=== PATIENT | female | born 1930 | race Caucasian/White ===

== ENCOUNTER → 2016-11-25 | Outpatient (CLI) | payer MEDICARE, BC, OTHER ==
[2016-11-25 12:49] LABS: ALT 21 U/L (9-52); AST 31 U/L (14-36); Alkaline Phosphatase 84 U/L (38-126); Anion Gap 9 mmol/L; Blood Urea Nitrogen 18 mg/dL (7-17); Calcium 10.7 mg/dL (8.4-10.2); Carbon Dioxide 25 mmol/L (22-30); Chloride 107 mmol/L (98-107); Glucose 107 mg/dL (74-99); Non-African American GFR(MDRD) 49 (>60 ml/min/1.73 sqM); Potassium 5.7 mmol/L (3.5-5.1); Sodium 141 mmol/L (137-145); Total Bilirubin 0.8 mg/dL (0.2-1.3); Total Protein 7.4 g/dL (6.3-8.2)
== END | disposition home or self-care (01) ==
LOC: LABWHC1 12:08
PROVIDERS: ATTEND Internal Medicine Endocrinology, Diabetes & Metabolism
DX: E21.0 Primary hyperparathyroidism (principal); E03.8 Other specified hypothyroidism
CPT/HCPCS: 36415; 80053; 83970; 84443

== ENCOUNTER → 2016-12-15 | Outpatient (CLI) | payer MEDICARE, BC, OTHER ==
--- NOTE | 2016-12-15 14:41 | XR ---
EXAMINATION TYPE: XR Hip Complete LT DATE OF EXAM: 12/15/2016 2:15 PM CLINICAL HISTORY: pain TECHNIQUE: AP and frogleg views of the left hip are obtained. COMPARISON: None. FINDINGS: There is no acute fracture/dislocation evident. The joint space appears mildly to modera tely narrowed.. The overlying soft tissue appears unremarkable. IMPRESSION: 1. There is no acute fracture or dislocation.ICD 10 NO FRACTURE, INITIAL EVALUATION
--- NOTE | 2016-12-15 14:41 | XR ---
EXAMINATION TYPE: XR lumbosacral spine min 4V DATE OF EXAM: 12/15/2016 2:15 PM CLINICAL HISTORY: pain COMPARISON: 08/21/2010 TECHNIQUE: Frontal, lateral, and oblique images of the lumbar spine are obtained. FINDINGS: There is severe multilevel degenerative disc disease with multilevel vacuum disc. Endplate sclerosis and ventral spondylosis as well as severe facet joint arthropathy. Continued grade 1 estefani listhesis L4 and L5 measuring 8 mm. No evidence for compression fracture or bony lesion. IMPRESSION: Progressive degenerative changes of the lumbar spine.
== END | disposition home or self-care (01) ==
LOC: RADXRMAIN 13:34
PROVIDERS: ATTEND Internal Medicine
DX: M47.816 Spondylosis without myelopathy or radiculopathy, lumbar region (principal); T14.90 Injury, unspecified
CPT/HCPCS: 72110; 73502

== ENCOUNTER 2016-12-20 14:18 | Emergency (ER) | payer MEDICARE, OTHER ==
[2016-12-20 14:29] VITALS: RESP 18; TEMP 98.5
--- NOTE | 2016-12-20 14:57 | XR ---
EXAMINATION TYPE: XR Hip RT and AP Pelvis DATE OF EXAM ORDERED: 12/20/2016 2:51 PM HISTORY: Pain. COMPARISON: None. FINDINGS: There are degenerative changes present in the lower lumbar spine. There is mild degenerati ve change of both hips, greater on the left than the right. Osseous structures about the pelvis are normal. No fracture or dislocation is seen. IMPRESSION: 1. NO ACUTE OSSEOUS LESION. 2. MILD DEGENERATIVE CHANGE IN THE HIPS AND SPINE.
--- NOTE | 2016-12-20 15:51 | ED ---
General Adult HPI - General Chief complaint: Extremity Injury, Lower Stated complaint: Fall Time Seen by Provider: 12/20/16 14:34 Source: patient, EMS, RN notes reviewed Mode of arrival: EMS Limitations: no limitations - History of Present Illness Initial comments: This is an 86-year-old female who presents for a hip pain via EMS. Patient states she was reaching for something and fell onto the right hip. Patient states this happened this morning and she is noticing increased pain so she came in for an x-ray. Patient denies hitting her head or any loss of consciousness. Patient is not on any blood thinners. Patient states she has been ambulating. Patient denies any knee pain or ankle pain. Patient denies any change in bowel or bladder function or loss of sensation to the saddle area. Patient denies any numbness/tingling/weakness or radicular pain. Patient denies any dizziness. Patient denies any recent fever, chills, shortness breath , chest pain, abdominal pain, nausea/vomiting/diarrhea, back pain, hematuria, headache, or visual changes, or any other complaints. - Related Data Home Medications Medication Instructions Recorded Confirmed LORazepam [Ativan] 0.5 mg PO DAILY 02/07/14 11/07/15 Levothyroxine Sodium [Synthroid] 150 mcg PO DAILY 02/07/14 11/07/15 Esomeprazole Magnesium [NexIUM] 40 mg PO DAILY 07/27/14 11/07/15 Sertraline [Zoloft] 100 mg PO DAILY 07/27/14 11/07/15 Simvastatin [Zocor] 20 mg PO HS 02/27/15 11/07/15 Albuterol Inhaler [Ventolin Hfa 1 - 2 puff INHALATION RT-Q6H PRN 11/06/15 Inhaler] LORazepam [Ativan] 1.5 mg PO HS 11/07/15 11/07/15 Previous Rx's Medication Instructions Recorded Bisoprolol [Zebeta] 5 mg PO BID #0 11/07/15 Enalapril [Vasotec] 5 mg PO DAILY #30 tab 11/07/15 Allergies Allergy/AdvReac Type Severity Reaction Status Date / Time codeine Allergy Unknown Verified 11/21/14 13:38 iodine Allergy Rash/Hives Verified 11/21/14 13:38 Calcium Channel Blocking AdvReac Unknown Verified 11/21/14 13:38 Agent Dilt [Calcium Channel Blocking Agents-Kevin] Review of Systems ROS Statement: Those systems with pertinent positive or pertinent negative responses have been documented in the HPI. ROS Other: All systems not noted in ROS Statement are negative. Past Medical History Past Medical History: COPD, Hypertension Additional Past Medical History / Comment(s): rheumatoid arthritis, hiatal hernia, parathyroid tumor, thoracic aneurysm, uti, History of Any Multi-Drug Resistant Organisms: None Reported Past Surgical History: Cholecystectomy, Hysterectomy Additional Past Surgical History / Comment(s): cataracts, Past Anesthesia/Blood Transfusion Reactions: No Reported Reaction Past Psychological History: Anxiety, Depression Smoking Status: Never smoker Past Alcohol Use History: None Reported Past Drug Use History: None Reported General Exam - General Exam Comments Initial Comments: General: The patient is awake and alert, in no distress, and does not appear acutely ill. Neck: The neck is supple, there is no tenderness or JVD. Cardiovascular: There is a regular rate and rhythm. No murmur, rub or gallop is appreciated. Respiratory: Lungs are clear to auscultation, respirations are non-labored, breath sounds are equal. No wheezes, stridor, rales, or rhonchi. Musculoskeletal: There is no apparent tenderness to palpation to the right hip or right knee. There is no swelling, erythema or ecchymosis. Patient has full range of motion, patient is ambulatory in the EC without any difficulty. Strength is 5/5 and Sensation intact. Posterior tibial pulses 2+ bilaterally. Neurological: A&O x 3. CN II-XII intact, There are no obvious motor or sensory deficits. Coordination appears grossly intact. Speech is normal. Skin: Skin is warm and dry and no rashes or lesions are noted. Psychiatric: Normal mood and affect. Limitations: no limitations Course Vital Signs 12/20/16 12/20/16 14:26 15:56 Temperature 98.5 F Pulse Rate 76 79 Respiratory 18 18 Rate Blood Pressure 152/79 140/71 O2 Sat by Pulse 96 96 Oximetry Medical Decision Making - Medical Decision Making This is an 86-year-old female who presents with right hip pain. Patient states she was reaching for something and fell onto the right hip. Patient has been ambulating without any pain or difficulty ever since. I observed patient walked bathroom and back in the EC without any difficulty using her walker. There is no apparent tenderness, bruising, swelling or erythema of the right hip. An x-ray of the right hip was done and reviewed showing: #1 no acute osseous lesion. #2 mild degenerative change in the hips and spine. Report by Dr. Manzo. Patient's granddaughter was also present in the room. Patient was offered an x-ray of the right knee but patient refused stating her knee pain is chronic for her and this is not worse today. Patient states she is not in a lot of pain and is ready to go home. Granddaughter states she will be with her for the rest of the day. I discussed return parameters and occult fracture. Discussed that patient should follow up with PCP in one to 2 days or return to the EC for any worsening symptoms or for any further concerns. Patient and granddaughter were receptive to this plan and patient will be discharged home. Disposition Clinical Impression: Right hip pain Disposition: HOME SELF-CARE Condition: Good Instructions: Hip Pain (ED) Additional Instructions: Please rest ice the area. Please use your normal at home pain medications. If symptoms do not improve in the next 7 days repeat x-rays may be needed to rule out occult fracture. Please follow-up with her primary care physician tomorrow or return to the EC for any worsening symptoms or for any further concerns. Referrals: Howie Negrete MD [Primary Care Provider] - 1-2 days Time of Disposition: 15:51
[2016-12-20 15:57] VITALS: BP 140/71; PULSE 79
== END 2016-12-20 15:57 | disposition home or self-care (01) ==
LOC: EC 14:18
DX: M25.551 Pain in right hip (principal); I10 Essential (primary) hypertension; F41.9 Anxiety disorder, unspecified; F32.9 Major depressive disorder, single episode, unspecified; Z88.5 Allergy status to narcotic agent; Z91.048 Other nonmedicinal substance allergy status; Z79.899 Other long term (current) drug therapy; W19.XXXA Unspecified fall, initial encounter
CPT/HCPCS: 73502; 99283

== ENCOUNTER → 2017-01-05 | Outpatient (CLI) | payer MEDICARE, OTHER ==
[2017-01-05 12:03] LABS: ALT 21 U/L (9-52); AST 27 U/L (14-36); Alkaline Phosphatase 190 U/L (38-126); Anion Gap 9 mmol/L; Blood Urea Nitrogen 20 mg/dL (7-17); Calcium 10.6 mg/dL (8.4-10.2); Carbon Dioxide 23 mmol/L (22-30); Chloride 107 mmol/L (98-107); Glucose 120 mg/dL (74-99); Non-African American GFR(MDRD) 57 (>60 ml/min/1.73 sqM); Sodium 139 mmol/L (137-145); Total Bilirubin 0.8 mg/dL (0.2-1.3); Total Protein 7.5 g/dL (6.3-8.2)
== END | disposition home or self-care (01) ==
LOC: LABWHC1 11:17
PROVIDERS: ATTEND Internal Medicine Endocrinology, Diabetes & Metabolism
DX: E21.0 Primary hyperparathyroidism (principal); E03.8 Other specified hypothyroidism
CPT/HCPCS: 36415; 80053; 82306; 83970; 84439; 84443

== ENCOUNTER 2017-01-10 04:45 | Emergency (ER) | payer MEDICARE, OTHER ==
[2017-01-10 04:51] VITALS: RESP 16; TEMP 97.9
--- NOTE | 2017-01-10 04:52 | ED ---
General Adult HPI - General Stated complaint: Fall Time Seen by Provider: 01/10/17 04:45 Source: RN notes reviewed - History of Present Illness Initial comments: This is an 86-year-old female has a past medical history significant for severe anxiety. Patient states she woke up and noted that her right distal middle finger was bent more than it normally is. Patient states she has severe arthritis of the fingers always been bent but she believes that's more benefit than normal. Patient denies any pain in the area patient denies any trauma to the area patient denies any swelling or redness to the area. Patient denies any chest pain palpitations difficulty breathing shortness of breath per patient denies headache patient denies numbness weakness. Patient denies abdominal pain patient denies nausea vomiting diarrhea. Patient denies any recent fever chills or cough. Patient states she did fall earlier today but did not injure anything that she knows of. When I asked her if she injured her finger in the fall she says no I did not - Related Data Home Medications Medication Instructions Recorded Confirmed LORazepam [Ativan] 0.5 mg PO DAILY 02/07/14 11/07/15 Levothyroxine Sodium [Synthroid] 150 mcg PO DAILY 02/07/14 11/07/15 Esomeprazole Magnesium [NexIUM] 40 mg PO DAILY 07/27/14 11/07/15 Sertraline [Zoloft] 100 mg PO DAILY 07/27/14 11/07/15 Simvastatin [Zocor] 20 mg PO HS 02/27/15 11/07/15 Albuterol Inhaler [Ventolin Hfa 1 - 2 puff INHALATION RT-Q6H PRN 11/06/15 Inhaler] LORazepam [Ativan] 1.5 mg PO HS 11/07/15 11/07/15 Previous Rx's Medication Instructions Recorded Bisoprolol [Zebeta] 5 mg PO BID #0 11/07/15 Enalapril [Vasotec] 5 mg PO DAILY #30 tab 11/07/15 Allergies Allergy/AdvReac Type Severity Reaction Status Date / Time codeine Allergy Unknown Verified 11/21/14 13:38 iodine Allergy Rash/Hives Verified 11/21/14 13:38 Calcium Channel Blocking AdvReac Unknown Verified 11/21/14 13:38 Agent Dilt [Calcium Channel Blocking Agents-Kevin] Review of Systems ROS Statement: Those systems with pertinent positive or pertinent negative responses have been documented in the HPI. ROS Other: All systems not noted in ROS Statement are negative. Past Medical History Past Medical History: COPD, Hypertension Additional Past Medical History / Comment(s): rheumatoid arthritis, hiatal hernia, parathyroid tumor, thoracic aneurysm, uti, History of Any Multi-Drug Resistant Organisms: None Reported Past Surgical History: Cholecystectomy, Hysterectomy Additional Past Surgical History / Comment(s): cataracts, Past Anesthesia/Blood Transfusion Reactions: No Reported Reaction Past Psychological History: Anxiety, Depression Smoking Status: Never smoker Past Alcohol Use History: None Reported Past Drug Use History: None Reported General Exam - General Exam Comments Initial Comments: GENERAL Patient is well-developed and well-nourished. Patient is in mild distress. EYES Patient's pupils are equal and round. Extraocular motion is intact SKIN Unremarkable NEURO The patient is alert and oriented 3 PYSCH Patient has normal interpersonal interactions. MUSCULOSKELETAL Patient's right distal finger is angulated laterally does not appear to be swollen or tender to palpation Left knee had a hematoma on the medial inferior aspect of the knee no ligamentous laxity was noted. Patient had no tenderness to the knee and she had full range of motion of the knee. Patient had a skin tear on the posterior aspect of the left elbow. Course Vital Signs 01/10/17 04:49 Temperature 97.9 F Pulse Rate 73 Respiratory 16 Rate Blood Pressure 215/97 O2 Sat by Pulse 97 Oximetry Medical Decision Making - Medical Decision Making Patient's told me she was not injured on physical exam she had a hematoma to the knee but she had no pain in the areas have full range of motion of the knee and there was no ligamentous laxity. Patient also skin tear on the elbow of the left arm X-ray shows severe arthritis and osteopenia. Patient's right middle finger is significantly angled laterally. Disposition Clinical Impression: Anxiety, Fall Disposition: HOME SELF-CARE Instructions: Fall Prevention for Older Adults (ED), Anxiety (ED) Referrals: Howie Negrete MD [Primary Care Provider] - 1-2 days Time of Disposition: 05:02
[2017-01-10] MEDS ORDERED: LORazepam 1 MG TAB PO STA (05:02)
[2017-01-10 05:13] VITALS: BP 119/65; PULSE 65
--- NOTE | 2017-01-10 05:32 | XR ---
EXAM: XR Right Finger(s), 2 or More Views. CLINICAL HISTORY: Reason: Pain TECHNIQUE: Frontal, lateral and oblique views of finger(s) of the right hand. COMPARISON: No relevant prior studies available. FINDINGS: There is a mild swan-neck deformity of the third digit, with flexion of the distal interphalangeal joint and extension of the proximal interphalangeal joint. Given that other digits demonstrate a similar appearance suggests that this is due to rheumatoid arthritis. Alternatively, findings may be due to prior volar plate injury at the proximal interphalangeal joint or extensor tendon injury at the distal interphalangeal joint, although this is less likely. There is loss of joint space at both the proximal and distal interphalangeal joints, with mild laxity and partial subluxation of the metacarpal phalangeal joint. Diffuse osteoporosis. IMPRESSION: Morton-neck deformity of the third digit suggestive of rheumatoid arthritis. Extension tendon injury is less likely.
== END 2017-01-10 06:17 | disposition home or self-care (01) ==
LOC: EC 04:45
DX: S51.012A Laceration without foreign body of left elbow, initial encounter (principal); S80.02XA Contusion of left knee, initial encounter; F41.9 Anxiety disorder, unspecified; M19.041 Primary osteoarthritis, right hand; F32.9 Major depressive disorder, single episode, unspecified; Z88.5 Allergy status to narcotic agent; Z91.048 Other nonmedicinal substance allergy status; Z88.8 Allergy status to other drugs, medicaments and biological substances; Z79.899 Other long term (current) drug therapy; W19.XXXA Unspecified fall, initial encounter
CPT/HCPCS: 99284

== ENCOUNTER → 2017-01-21 | Outpatient (CLI) | payer MEDICARE, OTHER | END | disposition home or self-care (01) | LOC: LABWHC1 14:49 | PROVIDERS: ATTEND Internal Medicine Cardiovascular Disease | DX: E03.8 Other specified hypothyroidism (principal) | CPT/HCPCS: 36415; 84443 ==

== ENCOUNTER → 2017-03-26 | Outpatient (CLI) | payer MEDICARE, OTHER | END | disposition home or self-care (01) | LOC: LABWHC1 11:24 | PROVIDERS: ATTEND Internal Medicine Endocrinology, Diabetes & Metabolism | DX: E03.8 Other specified hypothyroidism (principal) | CPT/HCPCS: 36415; 84443 ==

== ENCOUNTER → 2017-05-13 | Outpatient (CLI) | payer MEDICARE, OTHER ==
[2017-05-13 16:30] LABS: Blood Urea Nitrogen 19 mg/dL (7-17); Non-African American GFR(MDRD) 57 (>60 ml/min/1.73 sqM)
--- NOTE | 2017-05-13 17:52 | CT ---
EXAMINATION TYPE: CT angio chest DATE OF EXAM: 05/13/2017 5:24 PM COMPARISON 04/29/2016 HISTORY: Ascending aortic aneurysm. CT DLP: 388.30 mGycm Automated exposure control for dose reduction was used. CONTRAST: CTA scan of the thorax is performed without and with IV Contrast, patient injected with 80 mL of Visi paque 320, pulmonary embolism protocol. There are 3-D post processed images.. FINDINGS: There is a large hiatal hernia. The lungs are clear of consolidation. There is some mild atelectasis adjacent to the hiatal hernia. The heart size is normal. Thoracic aorta is atheromatous. There is no evidence of aortic dissection. The ascending aorta measures 4.4 cm. I see no filling defects in the pulmonary arteries. There is no mediastinal adenopathy. There are no hilar masses. IMPRESSION: NO EVIDENCE OF PULMONARY EMBOLISM. LARGE HIATAL HERNIA. 4.4 CM ANEURYSM OF THE ASCENDING AORTA. THIS MEASURES 4.2 CM ON THE OLD EXAM. NO AORTIC DISSECTION.
== END | disposition home or self-care (01) ==
LOC: RADCTMAIN 15:53
PROVIDERS: ATTEND Thoracic Surgery (Cardiothoracic Vascular Surgery)
DX: I71.2 Thoracic aortic aneurysm, without rupture (principal)
CPT/HCPCS: 82565; 84520; 71275; 36415; Q9967

== ENCOUNTER → 2017-06-29 | Outpatient (CLI) | payer MEDICARE, OTHER ==
[2017-06-29 10:14] LABS: ALT 20 U/L (9-52); AST 18 U/L (14-36); Alkaline Phosphatase 73 U/L (38-126); Anion Gap 9 mmol/L; Blood Urea Nitrogen 14 mg/dL (7-17); Calcium 9.8 mg/dL (8.4-10.2); Carbon Dioxide 24 mmol/L (22-30); Chloride 108 mmol/L (98-107); Glucose 95 mg/dL (74-99); Non-African American GFR(MDRD) >60 (>60 ml/min/1.73 sqM); Potassium 4.5 mmol/L (3.5-5.1); Sodium 141 mmol/L (137-145); Total Bilirubin 0.6 mg/dL (0.2-1.3); Total Protein 6.4 g/dL (6.3-8.2)
== END | disposition home or self-care (01) ==
LOC: LABWHC1 09:14
PROVIDERS: ATTEND Internal Medicine Endocrinology, Diabetes & Metabolism
DX: E21.0 Primary hyperparathyroidism (principal); E03.8 Other specified hypothyroidism
CPT/HCPCS: 36415; 80053; 82306; 83970; 84443

== ENCOUNTER → 2017-09-30 | Outpatient (CLI) | payer MEDICARE, OTHER ==
[2017-09-30 10:21] LABS: Albumin 4.1 g/dL (3.5-5.0); Calcium 11.1 mg/dL (8.4-10.2); Potassium 4.7 mmol/L (3.5-5.1); Total Bilirubin 0.7 mg/dL (0.2-1.3)
[2017-09-30 16:04] LABS: Vitamin D 25 Hydroxy 30.2 ng/mL (30.0-100.0)
== END | disposition home or self-care (01) ==
LOC: LABWHC1 09:18
PROVIDERS: ATTEND Internal Medicine Endocrinology, Diabetes & Metabolism
DX: E03.8 Other specified hypothyroidism (principal); E21.0 Primary hyperparathyroidism
CPT/HCPCS: 36415; 80053; 82306; 83970; 84443

== ENCOUNTER → 2017-11-25 | Outpatient (CLI) | payer MEDICARE, OTHER ==
[2017-11-25 15:31] LABS: Albumin 4.1 g/dL (3.5-5.0); Calcium 10.8 mg/dL (8.4-10.2); Potassium 4.9 mmol/L (3.5-5.1); Total Bilirubin 0.7 mg/dL (0.2-1.3); Total Protein 6.9 g/dL (6.3-8.2)
[2017-11-25 19:47] LABS: Parathyroid Hormone Intact 142.2 pg/mL (14.0-72.0)
== END | disposition home or self-care (01) ==
LOC: LABWHC1 13:18
PROVIDERS: ATTEND Internal Medicine Endocrinology, Diabetes & Metabolism
DX: E03.8 Other specified hypothyroidism (principal); E21.0 Primary hyperparathyroidism
CPT/HCPCS: 36415; 80053; 82306; 83970; 84443

== ENCOUNTER → 2018-01-03 | Outpatient (CLI) | payer MEDICARE, OTHER ==
--- NOTE | 2018-01-03 13:33 | XR ---
EXAMINATION TYPE: XR chest 2V DATE OF EXAM: 01/03/2018 COMPARISON: Prior chest x-ray November 06, 2015. Prior CTA chest May 13, 2017. HISTORY: Shortness of breath and cough. TECHNIQUE: Frontal and lateral views of the chest are obtained. FINDINGS: There is left basilar scarring and/or atelectasis redemonstrated along left heart border. There is right midlung linear atelectasis. There is large hiatal hernia or intrathoracic malrotated stomach redemonstrated retrocardiac region. The cardiac silhouette size is stable and mildly enlarged with atherosclerotic aorta. Degenerative change bilateral glenohumeral joints is seen. IMPRESSION: New right midlung linear atelectasis. Other chronic changes redemonstrated. No suspiciou s acute infiltrate.
== END | disposition home or self-care (01) ==
LOC: RADXRMAIN 13:01
PROVIDERS: ATTEND Internal Medicine
DX: J98.11 Atelectasis (principal)
CPT/HCPCS: 71046

== ENCOUNTER → 2018-02-28 | Outpatient (CLI) | payer MEDICARE, OTHER ==
[2018-02-28 15:51] LABS: Albumin 4.3 g/dL (3.5-5.0); Calcium 10.5 mg/dL (8.4-10.2); Potassium 4.6 mmol/L (3.5-5.1); Total Bilirubin 0.6 mg/dL (0.2-1.3); Total Protein 6.9 g/dL (6.3-8.2)
== END | disposition home or self-care (01) ==
LOC: LABWHC1 14:56
PROVIDERS: ATTEND Internal Medicine Endocrinology, Diabetes & Metabolism
DX: E21.0 Primary hyperparathyroidism (principal); E03.8 Other specified hypothyroidism
CPT/HCPCS: 36415; 80053; 83970; 84443

== ENCOUNTER → 2018-03-08 | Outpatient (CLI) | payer MEDICARE, OTHER ==
--- NOTE | 2018-03-08 15:36 | US ---
EXAMINATION TYPE: US pelvic complete DATE OF EXAM: 03/08/2018 COMPARISON: NONE CLINICAL HISTORY: R10.9 Abdominal pain,N39.90 Uriniary tract infection. Incontinence, frequent UTI's. Pelvic pain. Hysterectomy 1970, uterus and possibly 1 ovary (patient unsure) TECHNIQUE: Transabdominal (TA). Date of LMP: unknown EXAM MEASUREMENTS: Uterus: Surgically absent Endometrial Stripe: Surgically absent Right Ovary: unable to visualize Left Ovary: unable to visualize 1. Uterus: Surgically absent 2. Endometrium: Surgically absent 3. Right Ovary: unable to visualize 4. Left Ovary: unable to visualize 5. Bilateral Adnexa: wnl IMPRESSION: 1. Post hysterectomy and nephrectomy pelvis. Ovaries are not identified. 2. No suspicious ultrasound abnormality.
--- NOTE | 2018-03-08 15:49 | US ---
EXAMINATION TYPE: US kidneys/renal and bladder DATE OF EXAM: 03/08/2018 COMPARISON: NONE CLINICAL HISTORY: R10.9 Abdominal pain,N39.90 Uriniary tract infection. Incontinence, frequent UTI's EXAM MEASUREMENTS: Right Kidney: 9.8 x 3.7 x 3.4 cm Left Kidney: 9.0 x 4.2 x 3.0 cm Right Kidney: Simple cystic area lower pole = 1.0 x 1.3 x 1.0cm Left Kidney: somewhat lobulated Bladder: not fully distended Bilateral Jets seen: yes IMPRESSION: 1. Inferior pole right renal cyst. 2. Urinary bladder incompletely distended with some limited visualization
== END | disposition home or self-care (01) ==
LOC: RADUSWWP 13:31
PROVIDERS: ATTEND Internal Medicine
DX: N28.1 Cyst of kidney, acquired (principal); R10.2 Pelvic and perineal pain; Z90.710 Acquired absence of both cervix and uterus; Z90.5 Acquired absence of kidney
CPT/HCPCS: 76770; 76856

== ENCOUNTER 2018-03-23 00:46 | Emergency (ER) | payer MEDICARE, OTHER ==
[2018-03-23 00:57] VITALS: RESP 18
[2018-03-23 01:24] LABS: Anisocytosis Slight; Basophils % (A) 1 %; Eosinophils # (A) 0.1 k/uL (0-0.7); Eosinophils % (A) 1 %; HCT 39.5 % (34.0-46.0); HGB 13.3 gm/dL (11.4-16.0); Lymphocytes # (A) 1.8 k/uL (1.0-4.8); Lymphocytes % (A) 22 %; MCH 29.8 pg (25.0-35.0); MCHC 33.7 g/dL (31.0-37.0); MCV 88.2 fL (80.0-100.0); Mean Platelet Volume 7.3; Monocytes # (A) 0.6 k/uL (0-1.0); Monocytes % (A) 7 %; Neutrophils # (A) 5.5 k/uL (1.3-7.7); Neutrophils % (A) 67 %; Platelet Count 194 k/uL (150-450); RBC 4.48 m/uL (3.80-5.40); RDW 16.6 % (11.5-15.5); WBC 8.1 k/uL (3.8-10.6)
[2018-03-23 01:33] LABS: Albumin 3.9 g/dL (3.5-5.0); Calcium 10.4 mg/dL (8.4-10.2); Total Bilirubin 0.7 mg/dL (0.2-1.3); Total Protein 6.5 g/dL (6.3-8.2)
[2018-03-23 01:35] LABS: Potassium 4.5 mmol/L (3.5-5.1)
[2018-03-23 01:58] LABS: Appearance,Urine Turbid (Clear); Bilirubin,Urine Negative (Negative); Blood,Urine Moderate (Negative); Color,Urine Dark Yellow; Glucose,Urine (UA) Negative (Negative); Ketones,Urine Negative (Negative); Leukocyte Esterase,Urine Large (Negative); Mucus,Urine Rare /hpf; Nitrite,Urine Negative (Negative); Protein,Urine 2+ (Negative); RBC,Urine >182 /hpf (0-5); Specific Gravity,Urine 1.013 (1.001-1.035); Squamous Epithelial Cell,Urine 1 /hpf (0-4); Urobilinogen,Urine <2.0 mg/dL (<2.0); WBC,Urine >182 /hpf (0-5)
--- NOTE | 2018-03-23 03:25 | ED ---
Female Urogenital HPI - General Chief complaint: Urogenital Stated complaint: UTI Time Seen by Provider: 03/23/18 00:56 Source: patient, EMS Mode of arrival: EMS Limitations: no limitations - History of Present Illness Initial comments: This patient is an 87-year-old woman with history of previous urinary tract infection. She states that over the past week to so she has been having symptoms she states that are identical to previous urinary tract infection. She is having urinary frequency and dysuria. MD Complaint: dysuria, pelvic pain -: days(s) Location: suprapubic Radiation: non-radiating Severity: moderate Quality: cramping, dull Consistency: constant Improves with: none Worsens with: urination Associated Symptoms: denies other symptoms - Related Data Home Medications Medication Instructions Recorded Confirmed Levothyroxine Sodium [Synthroid] 100 mcg PO DAILY 02/07/14 03/23/18 Esomeprazole Magnesium [NexIUM] 40 mg PO DAILY 07/27/14 03/23/18 Sertraline [Zoloft] 150 mg PO DAILY 07/27/14 03/23/18 Albuterol Inhaler [Ventolin Hfa 1 - 2 puff INHALATION RT-Q6H PRN 11/06/15 Inhaler] Bisoprolol [Zebeta] 2.5 mg PO DAILY 07/04/17 03/23/18 Cholecalciferol [Vitamin D3] 1,000 unit PO DAILY 07/04/17 03/23/18 LORazepam [Ativan] 0.5 - 1 mg PO BID 07/04/17 03/23/18 Trimethoprim 100 mg PO DAILY 07/04/17 03/23/18 Previous Rx's Medication Instructions Recorded Enalapril [Vasotec] 5 mg PO DAILY #30 tab 11/07/15 Ciprofloxacin HCl [Cipro] 500 mg PO Q12HR #14 tablet 03/23/18 Allergies Allergy/AdvReac Type Severity Reaction Status Date / Time Calcium Channel Blocking Allergy Unknown Verified 03/23/18 01:00 Agent Dilt [Calcium Channel Blocking Agents-Kevin] iodine Allergy Rash/Hives Verified 03/23/18 01:00 levofloxacin [From Levaquin] Allergy Unknown Verified 03/23/18 03:46 codeine AdvReac Chest Pain Verified 03/23/18 01:00 Review of Systems ROS Statement: Those systems with pertinent positive or pertinent negative responses have been documented in the HPI. ROS Other: All systems not noted in ROS Statement are negative. Constitutional: Denies: fever, chills Respiratory: Denies: cough, dyspnea Cardiovascular: Denies: chest pain, palpitations, syncope Gastrointestinal: Reports: abdominal pain. Denies: nausea, vomiting, diarrhea, constipation Genitourinary: Reports: dysuria, frequency. Denies: hematuria Musculoskeletal: Denies: back pain Skin: Denies: rash Neurological: Denies: headache, weakness, numbness Past Medical History Past Medical History: COPD, Hypertension Additional Past Medical History / Comment(s): rheumatoid arthritis, hiatal hernia, parathyroid tumor, thoracic aneurysm, uti, irregular heart beat History of Any Multi-Drug Resistant Organisms: None Reported Past Surgical History: Cholecystectomy, Hysterectomy, Orthopedic Surgery Additional Past Surgical History / Comment(s): cataracts, total right knee replacement Past Anesthesia/Blood Transfusion Reactions: No Reported Reaction Past Psychological History: Anxiety, Depression Smoking Status: Never smoker Past Alcohol Use History: None Reported Past Drug Use History: None Reported - Past Family History Mother Family Medical History: Hypertension Additional Family Medical History / Comment(s): passed from abdominal aneurysm Father Additional Family Medical History / Comment(s): parkinsons Brother(s) Additional Family Medical History / Comment(s): esophageal issues Sister(s) Additional Family Medical History / Comment(s): mobility issues Son(s) Family Medical History: No Reported History General Exam Limitations: no limitations General appearance: alert, in no apparent distress Head exam: Present: atraumatic, normocephalic Eye exam: Present: normal appearance. Absent: scleral icterus, conjunctival injection Respiratory exam: Present: normal lung sounds bilaterally. Absent: respiratory distress, wheezes, rales, rhonchi, stridor Cardiovascular Exam: Present: regular rate, normal rhythm, systolic murmur. Absent: diastolic murmur, rubs, gallop GI/Abdominal exam: Present: soft. Absent: distended, tenderness, guarding, rebound, rigid, mass Extremities exam: Present: normal capillary refill, other (Multiple joint deformities consistent with history of rheumatoid arthritis). Absent: pedal edema Back exam: Absent: CVA tenderness (R), CVA tenderness (L) Neurological exam: Present: alert Skin exam: Present: warm, dry, intact, normal color. Absent: rash Course Vital Signs 03/23/18 03/23/18 03/23/18 00:55 03:00 04:33 Temperature 98.7 F 97.7 F Pulse Rate 72 80 89 Respiratory 18 18 18 Rate Blood Pressure 140/71 149/71 144/75 O2 Sat by Pulse 94 L 97 97 Oximetry Medical Decision Making - Medical Decision Making Patient is an 87-year-old woman presenting with urinary complaints and found to have urinary tract infection. Discussed patient having admission to start antibiotic therapy, which the patient initially requested to do. Dr. Negrete's paged. The patient did subsequently changed her mind and request to be discharged. We discussed further care and follow-up as well as well as return parameters - Lab Data Result diagrams: 03/23/18 01:00 03/23/18 01:00 Lab Results 03/23/18 03/23/18 03/23/18 Range/Units 01:00 01:00 01:00 WBC 8.1 (3.8-10.6) k/uL RBC 4.48 (3.80-5.40) m/uL Hgb 13.3 (11.4-16.0) gm/dL Hct 39.5 (34.0-46.0) % MCV 88.2 (80.0-100.0) fL MCH 29.8 (25.0-35.0) pg MCHC 33.7 (31.0-37.0) g/dL RDW 16.6 H (11.5-15.5) % Plt Count 194 (150-450) k/uL Neutrophils % 67 % Lymphocytes % 22 % Monocytes % 7 % Eosinophils % 1 % Basophils % 1 % Neutrophils # 5.5 (1.3-7.7) k/uL Lymphocytes # 1.8 (1.0-4.8) k/uL Monocytes # 0.6 (0-1.0) k/uL Eosinophils # 0.1 (0-0.7) k/uL Basophils # 0.0 (0-0.2) k/uL Anisocytosis Slight Sodium 136 L (137-145) mmol/L Potassium 4.5 (3.5-5.1) mmol/L Chloride 105 (98-107) mmol/L Carbon Dioxide 20 L (22-30) mmol/L Anion Gap 11 mmol/L BUN 16 (7-17) mg/dL Creatinine 0.80 (0.52-1.04) mg/dL Est GFR (CKD-EPI)AfAm 77 (>60 ml/min/1.73 sqM) Est GFR (CKD-EPI)NonAf 67 (>60 ml/min/1.73 sqM) Glucose 102 H (74-99) mg/dL Calcium 10.4 H (8.4-10.2) mg/dL Total Bilirubin 0.7 (0.2-1.3) mg/dL AST 24 (14-36) U/L ALT 21 (9-52) U/L Alkaline Phosphatase 60 (38-126) U/L Total Protein 6.5 (6.3-8.2) g/dL Albumin 3.9 (3.5-5.0) g/dL Urine Color Dark Yellow Urine Appearance Turbid H (Clear) Urine pH 6.0 (5.0-8.0) Ur Specific Tram 1.013 (1.001-1.035) Urine Protein 2+ H (Negative) Urine Glucose (UA) Negative (Negative) Urine Ketones Negative (Negative) Urine Blood Moderate H (Negative) Urine Nitrite Negative (Negative) Urine Bilirubin Negative (Negative) Urine Urobilinogen <2.0 (<2.0) mg/dL Ur Leukocyte Esterase Large H (Negative) Urine RBC >182 H (0-5) /hpf Urine WBC >182 H (0-5) /hpf Urine WBC Clumps Few H (None) /hpf Ur Squamous Epith Cells 1 (0-4) /hpf Urine Mucus Rare H (None) /hpf Disposition Clinical Impression: Urinary tract infection Disposition: HOME SELF-CARE Instructions: Urinary Tract Infection in Women (ED) Prescriptions: Ciprofloxacin HCl [Cipro] 500 mg PO Q12HR #14 tablet Is patient prescribed a controlled substance at d/c from ED?: No Referrals: Howie Negrete MD [Primary Care Provider] - 1-2 days
[2018-03-23] MEDS ORDERED: LEVOFLOXACIN 750MG-D5W PMX 750 MG in DEXTROSE/WATER 1 150ML.BAG IVPB STA (03:31)
[2018-03-23 04:33] VITALS: BP 144/75; PULSE 89; TEMP 97.7
== END 2018-03-23 04:30 | disposition home or self-care (01) ==
LOC: SUPCPDRO 00:46 → EC 00:46
DX: N39.0 Urinary tract infection, site not specified (principal); J44.9 Chronic obstructive pulmonary disease, unspecified; R10.2 Pelvic and perineal pain; F32.9 Major depressive disorder, single episode, unspecified; F41.9 Anxiety disorder, unspecified; Z79.899 Other long term (current) drug therapy; Z88.5 Allergy status to narcotic agent; Z88.1 Allergy status to other antibiotic agents; Z88.8 Allergy status to other drugs, medicaments and biological substances; Z90.49 Acquired absence of other specified parts of digestive tract; Z90.710 Acquired absence of both cervix and uterus; Z96.651 Presence of right artificial knee joint; Z53.29 Procedure and treatment not carried out because of patient's decision for other reasons
CPT/HCPCS: 36415; 80053; 81001; 85025; 99284

== ENCOUNTER → 2018-06-01 | Outpatient (CLI) | payer MEDICARE, OTHER ==
[2018-06-01 16:23] LABS: Albumin 3.7 g/dL (3.5-5.0); Calcium 10.3 mg/dL (8.4-10.2); Potassium 4.8 mmol/L (3.5-5.1); Total Bilirubin 0.5 mg/dL (0.2-1.3); Total Protein 6.5 g/dL (6.3-8.2)
== END ==
LOC: LABWHC1 14:46
PROVIDERS: ATTEND Internal Medicine Endocrinology, Diabetes & Metabolism
DX: E21.0 Primary hyperparathyroidism (principal); E03.8 Other specified hypothyroidism
CPT/HCPCS: 36415; 80053; 83970; 84443

== ENCOUNTER → 2018-10-04 | Outpatient (CLI) | payer MEDICARE, OTHER ==
--- NOTE | 2018-10-04 18:32 | US ---
EXAMINATION TYPE: US kidneys/renal and bladder DATE OF EXAM: 10/04/2018 COMPARISON: US CLINICAL HISTORY: N39.0 Frequent UTI. Frequent UTI EXAM MEASUREMENTS: Right Kidney: 9.3 x 3.6 x 3.8 cm Left Kidney: 9.5 x 4.7 x 4.0 cm Right Kidney: Cortical thinning, cyst lower pole as seen on previous= 1.5 x 1.0 x 1.1 cm. This is min imally increased in size from the prior where this measured 1.0 cm. Left Kidney: Lobulated contour with some cortical thinning Bladder: wnl Bilateral Jets seen: Yes There is no evidence for hydronephrosis at this point in time. No nephrolithiasis is seen. The urina ry bladder is anechoic. Bilateral ureteral jets are seen. IMPRESSION: 1. Mild bilateral cortical renal thinning, sequela of medical renal disease. 2. Redemonstration of a benign-appearing right lower pole renal cyst, minimally increased in size.
== END | disposition home or self-care (01) ==
LOC: RADUSWWP 16:04
PROVIDERS: ATTEND Internal Medicine
DX: N28.1 Cyst of kidney, acquired (principal); N28.89 Other specified disorders of kidney and ureter
CPT/HCPCS: 76770

== ENCOUNTER 2018-11-01 11:35 | Emergency (ER) | payer MEDICARE, OTHER ==
[2018-11-01 12:01] VITALS: RESP 18; TEMP 98.8
[2018-11-01 13:29] LABS: Anisocytosis Slight; Basophils % (A) 1 %; Eosinophils # (A) 0.1 k/uL (0-0.7); Eosinophils % (A) 1 %; Lymphocytes # (A) 0.8 k/uL (1.0-4.8); Lymphocytes % (A) 18 %; MCH 29.9 pg (25.0-35.0); MCHC 33.4 g/dL (31.0-37.0); MCV 89.7 fL (80.0-100.0); Mean Platelet Volume 7.4; Monocytes # (A) 0.3 k/uL (0-1.0); Monocytes % (A) 6 %; Neutrophils # (A) 3.4 k/uL (1.3-7.7); Neutrophils % (A) 74 %; Platelet Count 163 k/uL (150-450); RBC 4.35 m/uL (3.80-5.40); RDW 17.1 % (11.5-15.5); WBC 4.6 k/uL (3.8-10.6)
[2018-11-01 13:33] LABS: Albumin 3.7 g/dL (3.5-5.0); Appearance,Urine Clear (Clear); Bilirubin,Urine Negative (Negative); Blood,Urine Small (Negative); Calcium 10.1 mg/dL (8.4-10.2); Color,Urine Yellow; Glucose,Urine (UA) Negative (Negative); INR 0.9 (<1.2); Ketones,Urine Trace (Negative); Leukocyte Esterase,Urine Moderate (Negative); Magnesium 2.1 mg/dL (1.6-2.3); Mucus,Urine Rare /hpf; Nitrite,Urine Negative (Negative); Partial Thromboplastin Time 24.3 sec (22.0-30.0); Potassium 4.8 mmol/L (3.5-5.1); Protein,Urine Trace (Negative); Prothrombin Time 10.2 sec (9.0-12.0); RBC,Urine 24 /hpf (0-5); Specific Gravity,Urine 1.011 (1.001-1.035); Total Bilirubin 0.8 mg/dL (0.2-1.3); Total Protein 6.5 g/dL (6.3-8.2); Urobilinogen,Urine <2.0 mg/dL (<2.0); WBC,Urine 49 /hpf (0-5)
--- NOTE | 2018-11-01 15:11 | XR ---
EXAMINATION TYPE: XR chest 2V DATE OF EXAM: 11/01/2018 COMPARISON: 01/03/2019 HISTORY: Shortness of breath TECHNIQUE: Frontal and lateral views of the chest are obtained. FINDINGS: Scattered senescent parenchymal changes noted. Hyperinflation compatible with COPD. No evidence for infiltrate. No evidence for atelectasis. Linear parenchymal scar right midlung zone. Heart size is stable. There is a large fixed hiatal hernia. Mediastinal structures are stable and grossly unremarkable. No evidence for hilar prominence. Degenerative changes dorsal spine. IMPRESSION: 1. No evidence for acute pulmonary disease.
[2018-11-01] MEDS ORDERED: NITROFURANTOIN MONOHYD/M-CRYST 100 MG CAP PO STA (15:35)
--- NOTE | 2018-11-01 15:47 | ED ---
Weakness HPI - General Chief complaint: Weakness Stated complaint: Weakness Time Seen by Provider: 11/01/18 11:43 Source: patient Mode of arrival: EMS Limitations: no limitations - History of Present Illness Initial comments: Patient presents with some generalized weakness. She has some dysuria. She also thought she has pain in the left tibia, fibula. She has no calf pain or swelling. She has no chest pain. She has no palpitations. Nothing makes any the symptoms better or worse. She has taken no medication for the symptoms. Her symptoms haven't present for about a day. She has no lightheadedness. She has no focal weakness. She is tolerating oral intake. She denies any injuries. She has had no loss of consciousness. She has no neck pain or stiffness. She has no fever or chills. - Related Data Home Medications Medication Instructions Recorded Confirmed Esomeprazole Magnesium [NexIUM] 40 mg PO DAILY 07/27/14 11/01/18 Albuterol Inhaler [Ventolin Hfa 1 - 2 puff INHALATION RT-Q6H PRN 11/06/15 Inhaler] Cholecalciferol [Vitamin D3] 1,000 unit PO DAILY 07/04/17 11/01/18 LORazepam [Ativan] 0.5 - 1 mg PO BID 07/04/17 11/01/18 Trimethoprim 100 mg PO DAILY 07/04/17 11/01/18 Bisoprolol [Zebeta] 5 mg PO DAILY 11/01/18 11/01/18 Celecoxib [CeleBREX] 200 mg PO DAILY 11/01/18 11/01/18 Enalapril [Vasotec] 5 mg PO DAILY 11/01/18 11/01/18 Levothyroxine Sodium [Synthroid] 88 mcg PO DAILY 11/01/18 11/01/18 Pravastatin Sodium [Pravachol] 20 mg PO DAILY 11/01/18 11/01/18 Sertraline [Zoloft] 100 mg PO DAILY 11/01/18 11/01/18 Allergies Allergy/AdvReac Type Severity Reaction Status Date / Time Calcium Channel Blocking Allergy Unknown Verified 11/01/18 12:04 Agent Dilt [Calcium Channel Blocking Agents-Kevin] iodine Allergy Rash/Hives Verified 11/01/18 12:04 levofloxacin [From Levaquin] Allergy Unknown Verified 11/01/18 12:04 codeine AdvReac Chest Pain Verified 11/01/18 12:04 Review of Systems ROS Statement: Those systems with pertinent positive or pertinent negative responses have been documented in the HPI. ROS Other: All systems not noted in ROS Statement are negative. Past Medical History Past Medical History: COPD, Hypertension Additional Past Medical History / Comment(s): rheumatoid arthritis, hiatal hernia, parathyroid tumor, thoracic aneurysm, uti, irregular heart beat History of Any Multi-Drug Resistant Organisms: None Reported Past Surgical History: Cholecystectomy, Hysterectomy, Orthopedic Surgery Additional Past Surgical History / Comment(s): cataracts, total right knee replacement Past Anesthesia/Blood Transfusion Reactions: No Reported Reaction Past Psychological History: Anxiety, Depression Smoking Status: Never smoker Past Alcohol Use History: None Reported Past Drug Use History: None Reported - Past Family History Mother Family Medical History: Hypertension Additional Family Medical History / Comment(s): passed from abdominal aneurysm Father Additional Family Medical History / Comment(s): parkinsons Brother(s) Additional Family Medical History / Comment(s): esophageal issues Sister(s) Additional Family Medical History / Comment(s): mobility issues Son(s) Family Medical History: No Reported History General Exam Limitations: no limitations General appearance: alert, in no apparent distress Head exam: Present: atraumatic, normocephalic, normal inspection Eye exam: Present: normal appearance, PERRL, EOMI. Absent: scleral icterus, conjunctival injection, periorbital swelling ENT exam: Present: normal exam, mucous membranes moist Neck exam: Present: normal inspection. Absent: tenderness, meningismus, lymphadenopathy Respiratory exam: Present: normal lung sounds bilaterally. Absent: respiratory distress, wheezes, rales, rhonchi, stridor Cardiovascular Exam: Present: regular rate, normal rhythm, normal heart sounds. Absent: systolic murmur, diastolic murmur, rubs, gallop, clicks GI/Abdominal exam: Present: soft, normal bowel sounds. Absent: distended, tenderness, guarding, rebound, rigid Extremities exam: Present: normal inspection, full ROM, normal capillary refill. Absent: tenderness, pedal edema, joint swelling, calf tenderness Back exam: Present: normal inspection Neurological exam: Present: alert, oriented X3, CN II-XII intact Psychiatric exam: Present: normal affect, normal mood Skin exam: Present: warm, dry, intact, normal color. Absent: rash Course Vital Signs 11/01/18 11:40 Temperature 98.8 F Pulse Rate 73 Respiratory 18 Rate Blood Pressure 146/48 O2 Sat by Pulse 98 Oximetry EKG Findings - EKG Comments: EKG Findings:: Twelve-lead EKG shows ventricular rate 69 bpm, normal SC interval and QRS complexes, no ST elevation or depression, interpreted by me as normal sinus rhythm. Medical Decision Making - Medical Decision Making Patient presents with some weakness. Her examination is unremarkable. She has no focal deficits. She has chronic musculoskeletal changes consistent with her rheumatoid arthritis. Her imaging is all negative. Urinalysis is slightly positive for infection, so I gave her a dose of Macrobid in the emergency department prescription for Macrobid. Her vital signs are within normal limits. She is tolerating oral intake. I can find no evidence of an emergency condition. Varus further workup or admission the hospital. She is stable for discharge and outpatient follow-up. - Lab Data Result diagrams: 11/01/18 12:50 11/01/18 12:50 Lab Results 11/01/18 11/01/18 11/01/18 Range/Units 12:50 12:50 12:50 WBC 4.6 (3.8-10.6) k/uL RBC 4.35 (3.80-5.40) m/uL Hgb 13.0 (11.4-16.0) gm/dL Hct 39.0 (34.0-46.0) % MCV 89.7 (80.0-100.0) fL MCH 29.9 (25.0-35.0) pg MCHC 33.4 (31.0-37.0) g/dL RDW 17.1 H (11.5-15.5) % Plt Count 163 (150-450) k/uL Neutrophils % 74 % Lymphocytes % 18 % Monocytes % 6 % Eosinophils % 1 % Basophils % 1 % Neutrophils # 3.4 (1.3-7.7) k/uL Lymphocytes # 0.8 L (1.0-4.8) k/uL Monocytes # 0.3 (0-1.0) k/uL Eosinophils # 0.1 (0-0.7) k/uL Basophils # 0.0 (0-0.2) k/uL Anisocytosis Slight PT (9.0-12.0) sec INR (<1.2) APTT (22.0-30.0) sec Sodium 137 (137-145) mmol/L Potassium 4.8 (3.5-5.1) mmol/L Chloride 106 (98-107) mmol/L Carbon Dioxide 25 (22-30) mmol/L Anion Gap 6 mmol/L BUN 17 (7-17) mg/dL Creatinine 1.10 H (0.52-1.04) mg/dL Est GFR (CKD-EPI)AfAm 52 (>60 ml/min/1.73 sqM) Est GFR (CKD-EPI)NonAf 45 (>60 ml/min/1.73 sqM) Glucose 95 (74-99) mg/dL Plasma Lactic Acid Luis 1.0 (0.7-2.0) mmol/L Calcium 10.1 (8.4-10.2) mg/dL Magnesium 2.1 (1.6-2.3) mg/dL Total Bilirubin 0.8 (0.2-1.3) mg/dL AST 21 (14-36) U/L ALT 20 (9-52) U/L Alkaline Phosphatase 57 (38-126) U/L Troponin I (0.000-0.034) ng/mL Total Protein 6.5 (6.3-8.2) g/dL Albumin 3.7 (3.5-5.0) g/dL Urine Color Urine Appearance (Clear) Urine pH (5.0-8.0) Ur Specific [place] (1.001-1.035) Urine Protein (Negative) Urine Glucose (UA) (Negative) Urine Ketones (Negative) Urine Blood (Negative) Urine Nitrite (Negative) Urine Bilirubin (Negative) Urine Urobilinogen (<2.0) mg/dL Ur Leukocyte Esterase (Negative) Urine RBC (0-5) /hpf Urine WBC (0-5) /hpf Urine Mucus (None) /hpf 11/01/18 11/01/18 11/01/18 Range/Units 12:50 12:50 12:50 WBC (3.8-10.6) k/uL RBC (3.80-5.40) m/uL Hgb (11.4-16.0) gm/dL Hct (34.0-46.0) % MCV (80.0-100.0) fL MCH (25.0-35.0) pg MCHC (31.0-37.0) g/dL RDW (11.5-15.5) % Plt Count (150-450) k/uL Neutrophils % % Lymphocytes % % Monocytes % % Eosinophils % % Basophils % % Neutrophils # (1.3-7.7) k/uL Lymphocytes # (1.0-4.8) k/uL Monocytes # (0-1.0) k/uL Eosinophils # (0-0.7) k/uL Basophils # (0-0.2) k/uL Anisocytosis PT 10.2 (9.0-12.0) sec INR 0.9 (<1.2) APTT 24.3 (22.0-30.0) sec Sodium (137-145) mmol/L Potassium (3.5-5.1) mmol/L Chloride (98-107) mmol/L Carbon Dioxide (22-30) mmol/L Anion Gap mmol/L BUN (7-17) mg/dL Creatinine (0.52-1.04) mg/dL Est GFR (CKD-EPI)AfAm (>60 ml/min/1.73 sqM) Est GFR (CKD-EPI)NonAf (>60 ml/min/1.73 sqM) Glucose (74-99) mg/dL Plasma Lactic Acid Luis (0.7-2.0) mmol/L Calcium (8.4-10.2) mg/dL Magnesium (1.6-2.3) mg/dL Total Bilirubin (0.2-1.3) mg/dL AST (14-36) U/L ALT (9-52) U/L Alkaline Phosphatase (38-126) U/L Troponin I <0.012 (0.000-0.034) ng/mL Total Protein (6.3-8.2) g/dL Albumin (3.5-5.0) g/dL Urine Color Yellow Urine Appearance Clear (Clear) Urine pH 7.0 (5.0-8.0) Ur Specific [place] 1.011 (1.001-1.035) Urine Protein Trace H (Negative) Urine Glucose (UA) Negative (Negative) Urine Ketones Trace H (Negative) Urine Blood Small H (Negative) Urine Nitrite Negative (Negative) Urine Bilirubin Negative (Negative) Urine Urobilinogen <2.0 (<2.0) mg/dL Ur Leukocyte Esterase Moderate H (Negative) Urine RBC 24 H (0-5) /hpf Urine WBC 49 H (0-5) /hpf Urine Mucus Rare H (None) /hpf Disposition Clinical Impression: UTI (urinary tract infection) Disposition: HOME SELF-CARE Condition: Good Instructions (If sedation given, give patient instructions): Urinary Tract Infection in Older Adults (ED) Is patient prescribed a controlled substance at d/c from ED?: No Referrals: Howie Negrete MD [Primary Care Provider] - 1-2 days
--- NOTE | 2018-11-01 16:54 | XR ---
EXAMINATION TYPE: XR tibia fibula LT DATE OF EXAM: 11/01/2018 COMPARISON: NONE HISTORY: 88-year-old female complaining of leg pain with ambulation TECHNIQUE: 2 views FINDINGS: Severe change at the medial, lateral, and patellofemoral compartments of the knee. Small retained 6 m m jarrett of radiodensity along the anterolateral proximal leg soft tissues. No acute fracture is ident ified. Some vascular calcifications are noted versus some other nonspecific heterotopic ossification at the posterior midline. Osteopenia. Small corticated ossific density below the distal fibula at the lateral malleolus suggests sequela of remote injury. IMPRESSION: 1. Severe degenerative changes at the knee. 2. A 6 mm jarrett of radiodense debris along the anterolateral upper leg could represent external artif act or retained foreign body. Clinically correlate. 3. Focal calcifications in the posterior mid leg soft tissues could be vascular or could represent he terotopic ossification.
[2018-11-01 16:58] VITALS: BP 148/121; PULSE 81
== END 2018-11-01 16:53 | disposition home or self-care (01) ==
LOC: EC 11:35
DX: N39.0 Urinary tract infection, site not specified (principal); M79.662 Pain in left lower leg; R53.1 Weakness; M06.9 Rheumatoid arthritis, unspecified; J44.9 Chronic obstructive pulmonary disease, unspecified; I10 Essential (primary) hypertension; D49.7 Neoplasm of unspecified behavior of endocrine glands and other parts of nervous system; F41.9 Anxiety disorder, unspecified; F32.9 Major depressive disorder, single episode, unspecified; Z90.49 Acquired absence of other specified parts of digestive tract; Z90.710 Acquired absence of both cervix and uterus; Z96.651 Presence of right artificial knee joint; Z79.1 Long term (current) use of non-steroidal anti-inflammatories (NSAID); Z79.890 Hormone replacement therapy; Z79.899 Other long term (current) drug therapy; Z88.8 Allergy status to other drugs, medicaments and biological substances; Z91.048 Other nonmedicinal substance allergy status; Z88.1 Allergy status to other antibiotic agents; Z88.5 Allergy status to narcotic agent
CPT/HCPCS: 36415; 71046; 80053; 81001; 83605; 83735; 84484; 85025; 85610; 85730; 93005; 99285

== ENCOUNTER 2018-11-02 08:46 | Inpatient (IN) | payer MEDICARE, OTHER ==
--- NOTE | 2018-11-02 09:27 | ED ---
General Adult HPI - General Chief complaint: Fall Stated complaint: FALL Time Seen by Provider: 11/02/18 08:58 Source: patient, EMS, RN notes reviewed Mode of arrival: EMS Limitations: no limitations - History of Present Illness Initial comments: 88-year-old female presents to the emergency department for a chief complaint of fall occurring approximately 30 minutes prior to arrival. Patient states her right leg gave out. She states she has had pain in her legs for the past 2 days. She states this is mostly in the tib-fib area. She states pain is better at this time. However she states that the arch in her right foot is higher than normal which caused her leg to shake and heard a fall. Patient did hit the back of her head. No loss of consciousness. No blood thinners. Patient denies neck pain. Patient denies any back pain. Patient recently diagnosed with a urinary tract infection yesterday. Patient is a relatively poor historian. Patient has no other complaints at this time including shortness of breath, chest pain, abdominal pain, nausea or vomiting, headache, or visual changes. - Related Data Home Medications Medication Instructions Recorded Confirmed Esomeprazole Magnesium [NexIUM] 40 mg PO DAILY 07/27/14 11/02/18 Albuterol Inhaler [Ventolin Hfa 1 - 2 puff INHALATION RT-Q6H PRN 11/06/15 Inhaler] Cholecalciferol [Vitamin D3] 1,000 unit PO DAILY 07/04/17 11/02/18 LORazepam [Ativan] 0.5 - 1 mg PO BID 07/04/17 11/02/18 Trimethoprim 100 mg PO DAILY 07/04/17 11/02/18 Bisoprolol [Zebeta] 5 mg PO DAILY 11/01/18 11/02/18 Celecoxib [CeleBREX] 200 mg PO DAILY 11/01/18 11/02/18 Enalapril [Vasotec] 5 mg PO DAILY 11/01/18 11/02/18 Levothyroxine Sodium [Synthroid] 88 mcg PO DAILY 11/01/18 11/02/18 Pravastatin Sodium [Pravachol] 20 mg PO DAILY 11/01/18 11/02/18 Sertraline [Zoloft] 100 mg PO DAILY 11/01/18 11/02/18 Previous Rx's Medication Instructions Recorded Nitrofurantoin Monohyd/M-Cryst 100 mg PO Q12HR #20 cap 11/01/18 [Macrobid] Allergies Allergy/AdvReac Type Severity Reaction Status Date / Time Calcium Channel Blocking Allergy Unknown Verified 11/02/18 09:12 Agent Dilt [Calcium Channel Blocking Agents-Kevin] iodine Allergy Rash/Hives Verified 11/02/18 09:12 levofloxacin [From Levaquin] Allergy Unknown Verified 11/02/18 09:12 codeine AdvReac Chest Pain Verified 11/02/18 09:12 Review of Systems ROS Statement: Those systems with pertinent positive or pertinent negative responses have been documented in the HPI. ROS Other: All systems not noted in ROS Statement are negative. Past Medical History Past Medical History: COPD, Hypertension Additional Past Medical History / Comment(s): rheumatoid arthritis, hiatal hernia, parathyroid tumor, thoracic aneurysm, uti, irregular heart beat History of Any Multi-Drug Resistant Organisms: None Reported Past Surgical History: Cholecystectomy, Hysterectomy, Orthopedic Surgery Additional Past Surgical History / Comment(s): cataracts, total right knee replacement Past Anesthesia/Blood Transfusion Reactions: No Reported Reaction Past Psychological History: Anxiety, Depression Smoking Status: Never smoker Past Alcohol Use History: None Reported Past Drug Use History: None Reported - Past Family History Mother Family Medical History: Hypertension Additional Family Medical History / Comment(s): passed from abdominal aneurysm Father Additional Family Medical History / Comment(s): parkinsons Brother(s) Additional Family Medical History / Comment(s): esophageal issues Sister(s) Additional Family Medical History / Comment(s): mobility issues Son(s) Family Medical History: No Reported History General Exam Limitations: no limitations General appearance: alert, in no apparent distress Head exam: Present: normocephalic, normal inspection. Absent: atraumatic ( there is a 2 cm x 2 cm hematoma noted to Right parietal scalp) Eye exam: Present: normal appearance, PERRL, EOMI. Absent: scleral icterus, conjunctival injection, periorbital swelling ENT exam: Present: normal exam, normal oropharynx, mucous membranes moist, TM's normal bilaterally, normal external ear exam Neck exam: Present: other (patient in c-collar). Absent: tenderness, meningismus, lymphadenopathy Respiratory exam: Present: normal lung sounds bilaterally. Absent: respiratory distress, wheezes, rales, rhonchi, stridor Cardiovascular Exam: Present: regular rate, normal rhythm, normal heart sounds. Absent: systolic murmur, diastolic murmur, rubs, gallop, clicks GI/Abdominal exam: Present: soft, normal bowel sounds. Absent: distended, tenderness, guarding, rebound, rigid Extremities exam: Present: normal capillary refill (cap refill < 2 seconds bilat , DP pulse 2+ and equal bilat), other (Sensation intact bilaterally in lower extremities). Absent: calf tenderness (No tenderness noted throughout the calf) Back exam: Present: other (small abrasion noted on thoracic back). Absent: tenderness, paraspinal tenderness, vertebral tenderness (no cervical, thoracic, or lumbar spine tenderness) Neurological exam: Present: alert, oriented X3, CN II-XII intact Psychiatric exam: Present: normal affect, normal mood Skin exam: Present: warm, dry, intact, normal color. Absent: rash Course Vital Signs 11/02/18 08:46 Temperature 98.0 F Pulse Rate 62 Respiratory 18 Rate O2 Sat by Pulse 96 Oximetry EKG Findings - EKG Comments: EKG Findings:: Normal sinus rhythm, ventricular rate 64, IN interval 156, QTC 429 Medical Decision Making - Medical Decision Making 88-year-old female process to the emergency department for a chief complaint of head injury. Patient fell today. She states her right leg started shaking earlier. On exam patient does have a hematoma noted to the scalp. CT brain and C-spine negative for acute changes. Patient does have a small abrasion noted on her thoracic back however denies any back pain whatsoever. No tenderness along the thoracic spine or lumbar spine. No paraspinal tenderness. Patient refusing pain medication. Patient was recently seen here in the emergency department for weakness yesterday. CBC and CMP are unremarkable. Patient was diagnosed with a urinary tract infection yesterday however urine is clear today. Patient will be kept here in the hospital for further evaluation for high risk of falls. - Lab Data Result diagrams: 11/02/18 10:00 11/02/18 10:00 Lab Results 11/02/18 11/02/18 11/02/18 Range/Units 10:00 10:00 10:00 WBC 4.9 (3.8-10.6) k/uL RBC 4.54 (3.80-5.40) m/uL Hgb 14.3 (11.4-16.0) gm/dL Hct 40.9 (34.0-46.0) % MCV 89.9 (80.0-100.0) fL MCH 31.5 (25.0-35.0) pg MCHC 35.0 (31.0-37.0) g/dL RDW 17.1 H (11.5-15.5) % Plt Count 159 (150-450) k/uL Neutrophils % 78 % Lymphocytes % 11 % Monocytes % 9 % Eosinophils % 1 % Basophils % 1 % Neutrophils # 3.8 (1.3-7.7) k/uL Lymphocytes # 0.6 L (1.0-4.8) k/uL Monocytes # 0.4 (0-1.0) k/uL Eosinophils # 0.1 (0-0.7) k/uL Basophils # 0.0 (0-0.2) k/uL Anisocytosis Slight Sodium 139 (137-145) mmol/L Potassium (3.5-5.1) mmol/L Chloride 106 (98-107) mmol/L Carbon Dioxide 24 (22-30) mmol/L Anion Gap 9 mmol/L BUN 19 H (7-17) mg/dL Creatinine 0.97 (0.52-1.04) mg/dL Est GFR (CKD-EPI)AfAm 61 (>60 ml/min/1.73 sqM) Est GFR (CKD-EPI)NonAf 53 (>60 ml/min/1.73 sqM) Glucose 108 H (74-99) mg/dL Calcium 10.5 H (8.4-10.2) mg/dL Total Bilirubin 1.1 (0.2-1.3) mg/dL AST 30 (14-36) U/L ALT 16 (9-52) U/L Alkaline Phosphatase 59 (38-126) U/L Troponin I 0.012 (0.000-0.034) ng/mL Total Protein 7.6 (6.3-8.2) g/dL Albumin 4.2 (3.5-5.0) g/dL Urine Color Urine Appearance (Clear) Urine pH (5.0-8.0) Ur Specific [place] (1.001-1.035) Urine Protein (Negative) Urine Glucose (UA) (Negative) Urine Ketones (Negative) Urine Blood (Negative) Urine Nitrite (Negative) Urine Bilirubin (Negative) Urine Urobilinogen (<2.0) mg/dL Ur Leukocyte Esterase (Negative) 11/02/18 Range/Units 11:00 WBC (3.8-10.6) k/uL RBC (3.80-5.40) m/uL Hgb (11.4-16.0) gm/dL Hct (34.0-46.0) % MCV (80.0-100.0) fL MCH (25.0-35.0) pg MCHC (31.0-37.0) g/dL RDW (11.5-15.5) % Plt Count (150-450) k/uL Neutrophils % % Lymphocytes % % Monocytes % % Eosinophils % % Basophils % % Neutrophils # (1.3-7.7) k/uL Lymphocytes # (1.0-4.8) k/uL Monocytes # (0-1.0) k/uL Eosinophils # (0-0.7) k/uL Basophils # (0-0.2) k/uL Anisocytosis Sodium (137-145) mmol/L Potassium (3.5-5.1) mmol/L Chloride (98-107) mmol/L Carbon Dioxide (22-30) mmol/L Anion Gap mmol/L BUN (7-17) mg/dL Creatinine (0.52-1.04) mg/dL Est GFR (CKD-EPI)AfAm (>60 ml/min/1.73 sqM) Est GFR (CKD-EPI)NonAf (>60 ml/min/1.73 sqM) Glucose (74-99) mg/dL Calcium (8.4-10.2) mg/dL Total Bilirubin (0.2-1.3) mg/dL AST (14-36) U/L ALT (9-52) U/L Alkaline Phosphatase (38-126) U/L Troponin I (0.000-0.034) ng/mL Total Protein (6.3-8.2) g/dL Albumin (3.5-5.0) g/dL Urine Color Yellow Urine Appearance Clear (Clear) Urine pH 6.0 (5.0-8.0) Ur Specific [place] 1.017 (1.001-1.035) Urine Protein Negative (Negative) Urine Glucose (UA) Negative (Negative) Urine Ketones 1+ H (Negative) Urine Blood Negative (Negative) Urine Nitrite Negative (Negative) Urine Bilirubin Negative (Negative) Urine Urobilinogen <2.0 (<2.0) mg/dL Ur Leukocyte Esterase Negative (Negative) - EKG Data -: EKG Interpreted by Me (and Dr Melvin) - Radiology Data Radiology results: report reviewed, image reviewed Disposition Clinical Impression: Head injury, Risk for falls Disposition: ADMITTED IP TO THIS [facility] Condition: Good Is patient prescribed a controlled substance at d/c from ED?: No Referrals: Howie Negrete MD [Primary Care Provider] - 1-2 days Time of Disposition: 12:09
--- NOTE | 2018-11-02 10:44 | CT ---
EXAMINATION TYPE: CT brain shun dominique DATE OF EXAM: 11/02/2018 COMPARISON: 11/21/2014 HISTORY: Fall with subsequent head and neck pain CT DLP: 1283.4 mGycm. Automated Exposure Control for Dose Reduction was Utilized. TECHNIQUE: CT scan of the head and cervical spine are performed without contrast. FINDINGS: There is no acute intracranial hemorrhage, mass effect, or midline shift identified. Old lacunar injury is seen of the anterior limb of the left external capsule and caudate nucleus. The zahida tricles and sulci are within normal limits in size. The globes are intact and the visualized sinuses are clear. Possible small meningioma in the right frontal extra-axial space appears calcified on bruce ge 43 versus osseous exostosis. This is unchanged from 2015. Small 3 mm right posterior parietal scal p hematoma is seen near the skull vertex. Cervical spine is visualized in its entirety from C1 through upper thoracic levels and demonstrates s atisfactory vertebral body heights. There appears to be a healed nonunited fracture deformity of C1 at the right lateral mass with surrounding osseous productive change and callus formation. Severe mul tilevel degenerative disc disease is seen with posterior disc osteophyte complexes at C5-C6 and C6-C7 creating mild spinal canal stenosis. There is multilevel malalignment as there is grade 1 anterolisthesis of C3 on C4, C4 and C5, and C7 o n T1. Facets remain aligned. Prevertebral soft tissue appears within normal limits. The C1-C2 articu lation is unremarkable. IMPRESSION: 1. There is no acute fracture evident in the cervical spine. 2. No acute intracranial hemorrhage, mass effect, or midline shift is seen. 3. Small right posterior parietal scalp hematoma measures 3 mm in greatest thickness. 4. Old healed nonunited fracture deformity of the lateral mass of C1. 5. 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
[2018-11-02 10:53] LABS: Albumin 4.2 g/dL (3.5-5.0); Calcium 10.5 mg/dL (8.4-10.2); Total Bilirubin 1.1 mg/dL (0.2-1.3); Total Protein 7.6 g/dL (6.3-8.2)
[2018-11-02 10:59] LABS: Anisocytosis Slight; Basophils % (A) 1 %; Eosinophils # (A) 0.1 k/uL (0-0.7); Eosinophils % (A) 1 %; HCT 40.9 % (34.0-46.0); HGB 14.3 gm/dL (11.4-16.0); Lymphocytes # (A) 0.6 k/uL (1.0-4.8); Lymphocytes % (A) 11 %; MCH 31.5 pg (25.0-35.0); MCV 89.9 fL (80.0-100.0); Mean Platelet Volume 9.3; Monocytes # (A) 0.4 k/uL (0-1.0); Monocytes % (A) 9 %; Neutrophils # (A) 3.8 k/uL (1.3-7.7); Neutrophils % (A) 78 %; Platelet Count 159 k/uL (150-450); RBC 4.54 m/uL (3.80-5.40); RDW 17.1 % (11.5-15.5); WBC 4.9 k/uL (3.8-10.6)
[2018-11-02 11:30] LABS: Appearance,Urine Clear (Clear); Bilirubin,Urine Negative (Negative); Blood,Urine Negative (Negative); Color,Urine Yellow; Glucose,Urine (UA) Negative (Negative); Ketones,Urine 1+ (Negative); Leukocyte Esterase,Urine Negative (Negative); Nitrite,Urine Negative (Negative); Protein,Urine Negative (Negative); Specific Gravity,Urine 1.017 (1.001-1.035); Urobilinogen,Urine <2.0 mg/dL (<2.0)
[2018-11-02] MEDS ORDERED: traMADol 50 MG TAB PO PRN (12:17)
[2018-11-02] MEDS ORDERED: NALOXONE 0.4 MG/ML 1 ML VIAL IV PRN (12:17)
[2018-11-02] MEDS ORDERED: ONDANSETRON 4 MG/2 ML VIAL IVP PRN (12:17)
[2018-11-02 13:13] VITALS: BMI 24.2
[2018-11-02] MEDS ORDERED: ALBUTEROL NEBULIZED 2.5 MG/3 ML INHALATION PRN (14:36)
--- NOTE | 2018-11-02 15:03 | P.HPIM ---
History of Present Illness H&P Date: 11/02/18 Chief Complaint: Fall with bilateral leg weakness This is a 88-year-old female with a known past medical history of COPD, hypertension, rheumatoid arthritis, parathyroid tumor, hypothyroidism, generalized anxiety disorder and abdominal aortic aneurysm. Patient initially presented to the ER yesterday with complaints of generalized weakness and burning with urination. And she is complaining of pain in the left tibia fibula area. She denies any new injury. She was found to have a urinary tract infection started on Macrobid and discharged home. Patient reports she was feeling very weak and having difficulty getting out of bed this morning. When she was finally able to get herself out of bed she fell and hit the back of her head she thinks on her book case. There is no loss of consciousness. 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 She felt that this right leg gave out on her. She denies any lower back pain. She does have an abrasion on the thoracic area. Computed tomography scan of the brain and cervical spine were completed showed no acute fracture. No acute intracranial hemorrhage, mass effect or midline shift. There is a small right posterior parietal scalp hematoma measuring 3 mm in greatest thickness. EKG showing a normal sinus rhythm. Yesterday she was mildly dehydrated with a creatinine of 1.10 today creatinine is 0.97 chest x-ray from November 01 was negative as well as the x-ray on the left tibia fibula negative for any fractures. It did reveal severe degenerative changes in the knee. And a 6 mm jarrett of radiodense debris along the anterior lateral upper leg could represent external artifact or retained foreign body. Focal calcifications in the posterior mid leg soft tissues could be vascular or could represent heterotopic ossification. Patient denies any fever, chills or sweats, nausea or vomiting, bowel movement changes or shortness of breath or chest pain. Patient doesn't having burning with urination off and on for the last 2 weeks. Repeat urinalysis today is essentially unremarkable. Awaiting urine culture. We'll continue the Macrobid. Also no chest x-ray from November 01 was negative. Review of Systems Please refer to HPI otherwise unremarkable Past Medical History Past Medical History: COPD, Eye Disorder, GERD/Reflux, Hyperlipidemia, Hypertension, Rheumatoid Arthritis (RA), Thyroid Disorder, Vascular Disorder Additional Past Medical History / Comment(s): Irregular heart beat (pt does not know name of arrhythmia), thoracic aneurysm, R macular degeneration, large hiatal hernia, IBS, chronic abdominal pain, parathyroid tumor/hypothyroid, UTIs , incontinence of urine, essential tremors, bilateral carpal tunnel syndrome, past L rib fractures with small pneumothorax, gait dysfunction. History of Any Multi-Drug Resistant Organisms: None Reported Past Surgical History: Cholecystectomy, Hysterectomy, Joint Replacement Additional Past Surgical History / Comment(s): Total R knee arthroplasty, bilateral cataract removal/lens implants, EGD/colonoscopy/24 hour motility test Past Anesthesia/Blood Transfusion Reactions: No Reported Reaction Smoking Status: Former smoker - Past Family History Mother Family Medical History: Hypertension Additional Family Medical History / Comment(s): passed from abdominal aneurysm Father Additional Family Medical History / Comment(s): parkinsons Brother(s) Additional Family Medical History / Comment(s): esophageal issues Sister(s) Additional Family Medical History / Comment(s): mobility issues Son(s) Family Medical History: No Reported History Medications and Allergies Home Medications Medication Instructions Recorded Confirmed Type Esomeprazole Magnesium [NexIUM] 40 mg PO DAILY 07/27/14 11/02/18 History Albuterol Inhaler [Ventolin Hfa 1 - 2 puff INHALATION RT-Q6H PRN 11/06/15 History Inhaler] Cholecalciferol [Vitamin D3] 1,000 unit PO DAILY 07/04/17 11/02/18 History LORazepam [Ativan] 0.5 - 1 mg PO BID 07/04/17 11/02/18 History Trimethoprim 100 mg PO DAILY 07/04/17 11/02/18 History Bisoprolol [Zebeta] 5 mg PO DAILY 11/01/18 11/02/18 History Celecoxib [CeleBREX] 200 mg PO DAILY 11/01/18 11/02/18 History Enalapril [Vasotec] 5 mg PO DAILY 11/01/18 11/02/18 History Levothyroxine Sodium [Synthroid] 88 mcg PO DAILY 11/01/18 11/02/18 History Nitrofurantoin Monohyd/M-Cryst 100 mg PO Q12HR #20 cap 11/01/18 11/02/18 Rx [Macrobid] Pravastatin Sodium [Pravachol] 20 mg PO DAILY 11/01/18 11/02/18 History Sertraline [Zoloft] 100 mg PO DAILY 11/01/18 11/02/18 History Allergies Allergy/AdvReac Type Severity Reaction Status Date / Time Calcium Channel Blocking Allergy Unknown Verified 11/02/18 09:12 Agent Dilt [Calcium Channel Blocking Agents-Kevin] iodine Allergy Rash/Hives Verified 11/02/18 09:12 levofloxacin [From Levaquin] Allergy Unknown Verified 11/02/18 09:12 codeine AdvReac Chest Pain Verified 11/02/18 09:12 Physical Exam Vitals: Vital Signs Temp Pulse Resp BP Pulse Ox 11/02/18 13:24 75 14 153/89 95 11/02/18 13:16 97.9 F 62 18 149/90 95 11/02/18 08:46 98.0 F 62 18 136/65 96 Intake and Output 11/01/18 11/02/18 11/02/18 22:59 06:59 14:59 Other: Weight 60 kg Head normocephalic. Hematoma noted in the right parietal area Neck supple Lungs clear to auscultation bilaterally no wheezing or crackles Heart regular rate and rhythm S1-S2, no rub or gallop Abdomen is soft nontender nondistended positive bowel sounds no hepatosplenomegaly Extremities no edema Neuro alert and orientated to 3. Lower extremity strength appears to be equal about 4 out of 5 bilaterally. Patient is able to do straight leg lift with no pain in her back Back thoracic spine abrasion no tenderness with palpation Results CBC & Chem 7: 11/02/18 10:00 11/02/18 10:00 Labs: Abnormal Lab Results - Last 24 Hours (Table) 11/02/18 11/02/18 11/02/18 Range/Units 10:00 10:00 11:00 RDW 17.1 H (11.5-15.5) % Lymphocytes # 0.6 L (1.0-4.8) k/uL BUN 19 H (7-17) mg/dL Glucose 108 H (74-99) mg/dL Calcium 10.5 H (8.4-10.2) mg/dL Urine Ketones 1+ H (Negative) Thrombosis Risk Factor Assmnt - Choose All That Apply Any of the Below Risk Factors Present?: Yes Each Factor Represents 1 point: Abnormal pulmonary function (COPD) Other Risk Factors: Yes Each Risk Factor Represents 3 Points: Age 75 years or older Other congenital or acquired thrombophilia - If yes, enter type in comment: No Thrombosis Risk Factor Assessment Total Risk Factor Score: 4 Thrombosis Risk Factor Assessment Level: Moderate Risk Assessment and Plan Assessment: 1. Generalized weakness with fall and no loss of consciousness. Possibly related to dehydration, UTI and medical debility. Chest x-ray negative. Continue the IV fluids and antibiotic. Consult physical therapy 2. UTI: Repeat Urinalysis showing improvement with Macrobid. Await urine culture. Continue IV fluids 3. Small right posterior parietal scalp hematoma measuring 3 mm 4. Left leg pain no evidence of fracture evidence of severe degenerative changes in the knee. 5. History of COPD stable 6. Essential hypertension 7. Rheumatoid arthritis 8. Abdominal aortic aneurysm 9. Generalized anxiety disorder continue Ativan 10. Depression continue Zoloft 11. History of parathyroid tumor 12. Hypothyroidism continue Synthroid GI prophylaxis Protonix and DVT prophylaxis SCDs Time with Patient: Greater than 30 (Greater than 50% of the total time spent in counseling and coordination of care.I performed an examination of the patient and discussed their management with the physician Barytes Grinder. I have reviewed the Physician Barytes Grinder's notes and agree with the documented findings and plan of care)
[2018-11-02] MEDS: SODIUM CHLORIDE 0.9% 1,000 ML IV SCH (19:05)
[2018-11-02] MEDS: LORazepam 1 MG TAB PO SCH (20:06)
[2018-11-02] MEDS: NITROFURANTOIN MONOHYD/M-CRYST 100 MG CAP PO SCH (20:06)
[2018-11-03] MEDS: ACETAMINOPHEN TAB 325 MG TAB PO PRN (01:07)
[2018-11-03] MEDS: LEVOTHYROXINE 88 MCG TAB PO SCH (05:56)
[2018-11-03 07:47] LABS: Anisocytosis Slight; Basophils % (A) 1 %; Eosinophils # (A) 0.1 k/uL (0-0.7); Eosinophils % (A) 3 %; HCT 37.7 % (34.0-46.0); HGB 12.9 gm/dL (11.4-16.0); Lymphocytes # (A) 0.9 k/uL (1.0-4.8); Lymphocytes % (A) 23 %; MCH 30.8 pg (25.0-35.0); MCHC 34.2 g/dL (31.0-37.0); Mean Platelet Volume 6.7; Monocytes # (A) 0.3 k/uL (0-1.0); Monocytes % (A) 8 %; Neutrophils # (A) 2.5 k/uL (1.3-7.7); Neutrophils % (A) 65 %; Platelet Count 160 k/uL (150-450); RBC 4.18 m/uL (3.80-5.40); RDW 17.2 % (11.5-15.5); WBC 3.9 k/uL (3.8-10.6)
[2018-11-03 08:07] LABS: Albumin 3.5 g/dL (3.5-5.0); Calcium 10.2 mg/dL (8.4-10.2); Potassium 4.4 mmol/L (3.5-5.1); Total Bilirubin 0.8 mg/dL (0.2-1.3); Total Protein 6.1 g/dL (6.3-8.2)
[2018-11-03] MEDS: TRIMETHOPRIM 100 MG TAB PO SCH (10:28)
[2018-11-03] MEDS: LORazepam 1 MG TAB PO SCH ×2 (10:29→20:17)
[2018-11-03] MEDS: SERTRALINE 100 MG TAB PO SCH (10:29)
[2018-11-03] MEDS: PRAVASTATIN SODIUM 20 MG TAB PO SCH (10:29)
[2018-11-03] MEDS: CHOLECALCIFEROL 1,000 UNIT TAB PO SCH (10:29)
[2018-11-03] MEDS: BISOPROLOL 5 MG TAB PO SCH (10:29)
[2018-11-03] MEDS: PANTOPRAZOLE 40 MG TABLET PO SCH (10:29)
[2018-11-03] MEDS: MELOXICAM 7.5 MG TAB PO SCH (10:29)
[2018-11-03] MEDS: LISINOPRIL 10 MG TAB PO SCH (10:32)
[2018-11-03] MEDS: NITROFURANTOIN MONOHYD/M-CRYST 100 MG CAP PO SCH ×2 (10:32→20:17)
--- NOTE | 2018-11-03 12:05 | P.PN ---
Subjective Progress Note Date: 11/03/18 This is a 88-year-old female with a known past medical history of COPD, hypertension, rheumatoid arthritis, parathyroid tumor, hypothyroidism, generalized anxiety disorder and abdominal aortic aneurysm. Patient initially presented to the ER yesterday with complaints of generalized weakness and burning with urination. And she is complaining of pain in the left tibia fibula area. She denies any new injury. She was found to have a urinary tract infection started on Macrobid and discharged home. Patient reports she was feeling very weak and having difficulty getting out of bed this morning. When she was finally able to get herself out of bed she fell and hit the back of her head she thinks on her book case. There is no loss of consciousness. 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 She felt that this right leg gave out on her. She denies any lower back pain. She does have an abrasion on the thoracic area. Computed tomography scan of the brain and cervical spine were completed showed no acute fracture. No acute intracranial hemorrhage, mass effect or midline shift. There is a small right posterior parietal scalp hematoma measuring 3 mm in greatest thickness. EKG showing a normal sinus rhythm. Yesterday she was mildly dehydrated with a creatinine of 1.10 today creatinine is 0.97 chest x-ray from November 01 was negative as well as the x-ray on the left tibia fibula negative for any fractures. It did reveal severe degenerative changes in the knee. And a 6 mm jarrett of radiodense debris along the anterior lateral upper leg could represent external artifact or retained foreign body. Focal calcifications in the posterior mid leg soft tissues could be vascular or could represent heterotopic ossification. Patient denies any fever, chills or sweats, nausea or vomiting, bowel movement changes or shortness of breath or chest pain. Patient doesn't having burning with urination off and on for the last 2 weeks. Repeat urinalysis today is essentially unremarkable. Awaiting urine culture. We'll continue the Macrobid. Also no chest x-ray from November 01 was negative. On 11/03/2018. Patient is currently alert and oriented resting comfortably in bed patient is complaining of increased right sided rib pain from where she fell. Will order chest x-ray to rule out rib fracture patient denies any chest pain or shortness breath. Patient denies nausea vomiting or diarrhea. Patient denies any urinary burning or frequency. Objective - Vital Signs Vital signs: Vital Signs Temp 97.8 F 11/03/18 07:51 Pulse 61 11/03/18 07:51 Resp 16 11/03/18 00:05 BP 146/67 11/03/18 07:51 Pulse Ox 96 11/03/18 07:51 Intake & Output 11/02/18 11/03/18 11/03/18 18:59 06:59 18:59 Intake Total 240 250 Balance 240 250 Weight 60 kg Intake: Oral 240 250 Other: # Voids 1 - Exam Head normocephalic. Hematoma noted in the right parietal area Neck supple Lungs clear to auscultation bilaterally no wheezing or crackles Heart regular rate and rhythm S1-S2, no rub or gallop Abdomen is soft nontender nondistended positive bowel sounds no hepatosplenomegaly Extremities no edema Neuro alert and orientated to 3. Lower extremity strength appears to be equal about 4 out of 5 bilaterally. Patient is able to do straight leg lift with no pain in her back Back thoracic spine abrasion no tenderness with palpation - Labs CBC & Chem 7: 11/03/18 07:16 11/03/18 07:16 Labs: Abnormal Lab Results - Last 24 Hours (Table) 11/03/18 11/03/18 Range/Units 07:16 07:16 RDW 17.2 H (11.5-15.5) % Lymphocytes # 0.9 L (1.0-4.8) k/uL Total Protein 6.1 L (6.3-8.2) g/dL Microbiology - Last 24 Hours (Table) 11/02/18 12:00 Urine Culture - Preliminary Urine,Clean Catch Assessment and Plan Assessment: 1. Generalized weakness with fall and no loss of consciousness. Possibly related to dehydration, UTI and medical debility. Chest x-ray negative. Continue the IV fluids and antibiotic. Consult physical therapy. Chest x-ray has been ordered to rule out Rib fracture. Dr. Thurston has been consulted 2. UTI: Repeat Urinalysis showing improvement with Macrobid. Await urine culture. Continue IV fluids 3. Small right posterior parietal scalp hematoma measuring 3 mm 4. Left leg pain no evidence of fracture evidence of severe degenerative changes in the knee. 5. History of COPD stable 6. Essential hypertension 7. Rheumatoid arthritis 8. Abdominal aortic aneurysm 9. Generalized anxiety disorder continue Ativan 10. Depression continue Zoloft 11. History of parathyroid tumor 12. Hypothyroidism continue Synthroid DVT prophylaxis SCDs due to small right posterior hematoma and GI prophylaxis Protonix I performed an examination of the patient and discussed their management with the Nurse Practitioner. I have reviewed the Nurse Practitioner's notes and agree with the documented findings and plan of care
--- NOTE | 2018-11-03 12:56 | XR ---
EXAMINATION TYPE: XR chest 2V DATE OF EXAM: 11/03/2018 COMPARISON: 11/01/2018 and 01/03/2018 HISTORY: Left-sided chest pain TECHNIQUE: Frontal and lateral views of the chest are obtained. FINDINGS: There is a large hiatal hernia, presumably entire intrathoracic stomach. Chronic fracture deformities are seen of the left lateral ribs of ribs 5, 6, and 7 are seen on the prior of 01/03/2018. Lungs are clear without evidence of focal consolidation, pleural effusion or pneumothorax. Mild mult ilevel degenerative changes of the spine are noted. IMPRESSION: 1. Chronic rib fracture deformities are seen on the lateral margins of ribs 5 through 7 unchanged fro m the prior of 01/03/2018. Rib series radiographs could assess for possible acute refracture component . 2. Large hiatal hernia, likely entirely intrathoracic stomach.
[2018-11-03] MEDS: SODIUM CHLORIDE 0.9% 1,000 ML IV SCH (12:59)
--- NOTE | 2018-11-03 13:53 | P.CONS ---
History of Present Illness - Chief Complaint Gait disturbance - History of Present Illness I had the opportunity to see patient for inpatient rehab consultation with regard to gait disturbance. She was admitted to [facility] November 02 history of weak legs and falling and hitting his head. Chest x-ray done and demonstrates chronic right rib 5 through 7 fractures and large hiatal hernia. 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 C-spine CT demonstrates osteophyte complexes C5, 6 and grade 1 anterolisthesis C3, 4, 7. PT prescribed and I have added OT and speech. Patient reports that she was to see me in my office with regard to a wheelchair evaluation. Patient describes history of rheumatoid arthritis as well as progressive leg weakness. She reports a right knee surgery 16 years ago and felt that she has been declining ever since. In fact she does describe history of falling. Previous functional history as elicited patient: 87-year-old right-handed white female who is lives in second-floor apartment alone. Describes independent with own cooking and laundry as well sitdown shower and gait with 4 wheeled walker. Doesn't smoke or drink. Does not drive. Dr. chinchilla jar his regular doctor. Family history of Parkinson in father. Review of Systems Review of systems: ENT: Denies sneezes or discharge. Eyes: Denies discharge or photophobia. Cardiac: Denies chest pain or palpitation. Pulmonary: Denies cough or shortness of breath. Breast: Denies discharge or lumps. Gastrointestinal: Denies nausea, emesis, constipation, diarrhea. Genitourinary: Denies discharge or frequency. Musculoskeletal: Right knee pain and weakness. Neurologic: Lower extremity weakness. Endocrine: Denies shakes or sweats. Oncology: Denies cancers. Dermatologic: Denies rash, itching, pruritus. ALLERGY/immunology: Denies sneezes, rashes. Past Medical History Past Medical History: COPD, Eye Disorder, GERD/Reflux, Hyperlipidemia, Hypertension, Rheumatoid Arthritis (RA), Thyroid Disorder, Vascular Disorder Additional Past Medical History / Comment(s): Irregular heart beat (pt does not know name of arrhythmia), thoracic aneurysm, R macular degeneration, large hiatal hernia, IBS, chronic abdominal pain, parathyroid tumor/hypothyroid, UTIs , incontinence of urine, essential tremors, bilateral carpal tunnel syndrome, past L rib fractures with small pneumothorax, gait dysfunction. History of Any Multi-Drug Resistant Organisms: None Reported Past Surgical History: Cholecystectomy, Hysterectomy, Joint Replacement Additional Past Surgical History / Comment(s): Total R knee arthroplasty, bilateral cataract removal/lens implants, EGD/colonoscopy/24 hour motility test Past Anesthesia/Blood Transfusion Reactions: No Reported Reaction Smoking Status: Former smoker - Past Family History Mother Family Medical History: Hypertension Additional Family Medical History / Comment(s): passed from abdominal aneurysm Father Additional Family Medical History / Comment(s): parkinsons Brother(s) Additional Family Medical History / Comment(s): esophageal issues Sister(s) Additional Family Medical History / Comment(s): mobility issues Son(s) Family Medical History: No Reported History Medications and Allergies Home Medications Medication Instructions Recorded Confirmed Type Esomeprazole Magnesium [NexIUM] 40 mg PO DAILY 07/27/14 11/02/18 History Albuterol Inhaler [Ventolin Hfa 1 - 2 puff INHALATION RT-Q6H PRN 11/06/15 History Inhaler] Cholecalciferol [Vitamin D3] 1,000 unit PO DAILY 07/04/17 11/02/18 History LORazepam [Ativan] 0.5 - 1 mg PO BID 07/04/17 11/02/18 History Trimethoprim 100 mg PO DAILY 07/04/17 11/02/18 History Bisoprolol [Zebeta] 5 mg PO DAILY 11/01/18 11/02/18 History Celecoxib [CeleBREX] 200 mg PO DAILY 11/01/18 11/02/18 History Enalapril [Vasotec] 5 mg PO DAILY 11/01/18 11/02/18 History Levothyroxine Sodium [Synthroid] 88 mcg PO DAILY 11/01/18 11/02/18 History Nitrofurantoin Monohyd/M-Cryst 100 mg PO Q12HR #20 cap 11/01/18 11/02/18 Rx [Macrobid] Pravastatin Sodium [Pravachol] 20 mg PO DAILY 11/01/18 11/02/18 History Sertraline [Zoloft] 100 mg PO DAILY 11/01/18 11/02/18 History Allergies Allergy/AdvReac Type Severity Reaction Status Date / Time Calcium Channel Blocking Allergy Unknown Verified 02/14/19 09:12 Agent Dilt [Calcium Channel Blocking Agents-Kevin] iodine Allergy Rash/Hives Verified 11/02/18 09:12 levofloxacin [From Levaquin] Allergy Unknown Verified 11/02/18 09:12 codeine AdvReac Chest Pain Verified 11/02/18 09:12 Physical Exam Vitals: Vital Signs Temp Pulse Pulse Resp BP Pulse Ox 11/03/18 07:51 97.8 F 61 146/67 96 11/03/18 00:05 97.4 F L 68 16 129/77 92 L 11/02/18 19:55 98.3 F 69 16 145/81 93 L 11/02/18 15:44 78 11/02/18 15:25 14 11/02/18 14:39 98.1 F 78 16 145/83 95 Intake and Output 11/02/18 11/03/18 11/03/18 22:59 06:59 14:59 Intake Total 490 Balance 490 Intake: Oral 490 Other: # Voids 1 1 Skin: Atrophic, intact. General: Medium build and comfortable appearance. Head: Normocephalic, atraumatic. Eyes: Symmetric. Pupils equal round. Ears: Symmetric. Hearing within normal limits. Mouth: Clear. Neck: Supple. Carotid without bruit. Cardiac: Regular rate and rhythm. Lungs: Clear anteriorly and posteriorly. Abdomen: Soft active nontender. Extremities: Normal tone. Arthritic changes all major joints. Neurological: Mental status: Alert, cooperative, pleasant. Cranial nerves: Symmetric facial tone and trapezius. Motor: At best antigravity arms and legs. Sensation: Intact throughout. DTRs: Symmetric and equal throughout. Mobility: Sits with assistance. Results CBC & Chem 7: 11/03/18 07:16 11/03/18 07:16 Labs: Abnormal Lab Results - Last 24 Hours (Table) 11/03/18 11/03/18 Range/Units 07:16 07:16 RDW 17.2 H (11.5-15.5) % Lymphocytes # 0.9 L (1.0-4.8) k/uL Total Protein 6.1 L (6.3-8.2) g/dL Microbiology - Last 24 Hours (Table) 11/02/18 12:00 Urine Culture - Preliminary Urine,Clean Catch Assessment and Plan (1) Head injury Current Visit: Yes Status: Acute Code(s): S09.90XA - UNSPECIFIED INJURY OF HEAD, INITIAL ENCOUNTER SNOMED Code(s): 74425520 (2) Risk for falls Current Visit: Yes Status: Acute Code(s): Z91.81 - HISTORY OF FALLING SNOMED Code(s): 651952449 Plan: Impression: 1. Gait disturbance. 2. Lower extremity weakness and history of frequent falls. 3. Acute on chronic COPD exacerbation. 4. Acute kidney injury. 5. Rheumatoid arthritis. 6. Hypertension. 7. Dyslipidemia. 8. Vascular disease. Comments and plan: PT prescribed and I have added OT and LABOR RELATIONS DIRECTOR. Follow therapies with yourself. At this time a wheelchair seems appropriate for patient, as an outpatient or in- home. Unsure if request for by outpatient consultation was actually for POV. If so, patient could be candidate for POV as well for use in apartment as well as out apartment.
[2018-11-04] MEDS: SODIUM CHLORIDE 0.9% 1,000 ML IV SCH (05:09)
[2018-11-04] MEDS: LEVOTHYROXINE 88 MCG TAB PO SCH (05:54)
[2018-11-04] MEDS: NITROFURANTOIN MONOHYD/M-CRYST 100 MG CAP PO SCH ×2 (07:57→20:58)
[2018-11-04] MEDS: PANTOPRAZOLE 40 MG TABLET PO SCH (07:58)
[2018-11-04] MEDS: CHOLECALCIFEROL 1,000 UNIT TAB PO SCH (07:58)
[2018-11-04] MEDS: LORazepam 1 MG TAB PO SCH ×2 (07:58→20:58)
[2018-11-04] MEDS: BISOPROLOL 5 MG TAB PO SCH (07:58)
[2018-11-04] MEDS: LISINOPRIL 10 MG TAB PO SCH (07:59)
[2018-11-04] MEDS: TRIMETHOPRIM 100 MG TAB PO SCH (08:00)
[2018-11-04] MEDS: PRAVASTATIN SODIUM 20 MG TAB PO SCH (08:00)
[2018-11-04] MEDS: MELOXICAM 7.5 MG TAB PO SCH (08:01)
[2018-11-04 08:02] LABS: Anisocytosis Slight; Basophils % (A) 1 %; Eosinophils # (A) 0.1 k/uL (0-0.7); Eosinophils % (A) 3 %; HCT 37.2 % (34.0-46.0); HGB 12.6 gm/dL (11.4-16.0); Lymphocytes # (A) 0.9 k/uL (1.0-4.8); Lymphocytes % (A) 24 %; MCH 30.6 pg (25.0-35.0); MCV 89.9 fL (80.0-100.0); Mean Platelet Volume 7.8; Monocytes # (A) 0.3 k/uL (0-1.0); Monocytes % (A) 8 %; Neutrophils # (A) 2.4 k/uL (1.3-7.7); Neutrophils % (A) 62 %; Platelet Count 162 k/uL (150-450); RBC 4.13 m/uL (3.80-5.40); RDW 17.2 % (11.5-15.5); WBC 3.8 k/uL (3.8-10.6)
[2018-11-04] MEDS: SERTRALINE 100 MG TAB PO SCH (08:02)
[2018-11-04 08:19] LABS: Albumin 3.2 g/dL (3.5-5.0); Potassium 4.6 mmol/L (3.5-5.1); Total Bilirubin 0.7 mg/dL (0.2-1.3); Total Protein 5.8 g/dL (6.3-8.2)
[2018-11-04] MEDS: ACETAMINOPHEN TAB 325 MG TAB PO PRN (21:03)
[2018-11-05] MEDS: SODIUM CHLORIDE 0.9% 1,000 ML IV SCH ×2 (00:26→21:00)
[2018-11-05] MEDS: LEVOTHYROXINE 88 MCG TAB PO SCH (05:54)
[2018-11-05 08:36] LABS: Anisocytosis Slight; Basophils % (A) 1 %; Eosinophils # (A) 0.2 k/uL (0-0.7); Eosinophils % (A) 4 %; HCT 36.7 % (34.0-46.0); HGB 12.6 gm/dL (11.4-16.0); Lymphocytes % (A) 26 %; MCH 31.3 pg (25.0-35.0); MCHC 34.2 g/dL (31.0-37.0); MCV 91.4 fL (80.0-100.0); Mean Platelet Volume 7.5; Monocytes # (A) 0.3 k/uL (0-1.0); Monocytes % (A) 8 %; Neutrophils # (A) 2.3 k/uL (1.3-7.7); Neutrophils % (A) 60 %; Platelet Count 139 k/uL (150-450); RBC 4.01 m/uL (3.80-5.40); WBC 3.8 k/uL (3.8-10.6)
[2018-11-05 08:51] LABS: Albumin 3.1 g/dL (3.5-5.0); Potassium 5.2 mmol/L (3.5-5.1); Total Bilirubin 0.6 mg/dL (0.2-1.3); Total Protein 5.7 g/dL (6.3-8.2)
[2018-11-05] MEDS: SERTRALINE 100 MG TAB PO SCH (08:54)
[2018-11-05] MEDS: MELOXICAM 7.5 MG TAB PO SCH (08:54)
[2018-11-05] MEDS: PRAVASTATIN SODIUM 20 MG TAB PO SCH (08:54)
[2018-11-05] MEDS: LORazepam 1 MG TAB PO SCH ×2 (08:54→21:01)
[2018-11-05] MEDS: CHOLECALCIFEROL 1,000 UNIT TAB PO SCH (08:54)
[2018-11-05] MEDS: BISOPROLOL 5 MG TAB PO SCH (08:55)
[2018-11-05] MEDS: LISINOPRIL 10 MG TAB PO SCH (08:55)
[2018-11-05] MEDS: PANTOPRAZOLE 40 MG TABLET PO SCH (08:55)
[2018-11-05] MEDS: TRIMETHOPRIM 100 MG TAB PO SCH (08:55)
[2018-11-05] MEDS: NITROFURANTOIN MONOHYD/M-CRYST 100 MG CAP PO SCH ×2 (08:55→22:53)
[2018-11-05] MEDS ORDERED: SODIUM POLYSTYRENE SULFONATE 15 GM/60 ML BOTTLE PO ONE (09:09)
--- NOTE | 2018-11-05 09:29 | P.PN ---
Subjective Progress Note Date: 11/04/18 This is a 88-year-old female with a known past medical history of COPD, hypertension, rheumatoid arthritis, parathyroid tumor, hypothyroidism, generalized anxiety disorder and abdominal aortic aneurysm. Patient initially presented to the ER yesterday with complaints of generalized weakness and burning with urination. And she is complaining of pain in the left tibia fibula area. She denies any new injury. She was found to have a urinary tract infection started on Macrobid and discharged home. Patient reports she was feeling very weak and having difficulty getting out of bed this morning. When she was finally able to get herself out of bed she fell and hit the back of her head she thinks on her book case. There is no loss of consciousness. 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 She felt that this right leg gave out on her. She denies any lower back pain. She does have an abrasion on the thoracic area. Computed tomography scan of the brain and cervical spine were completed showed no acute fracture. No acute intracranial hemorrhage, mass effect or midline shift. There is a small right posterior parietal scalp hematoma measuring 3 mm in greatest thickness. EKG showing a normal sinus rhythm. Yesterday she was mildly dehydrated with a creatinine of 1.10 today creatinine is 0.97 chest x-ray from November 01 was negative as well as the x-ray on the left tibia fibula negative for any fractures. It did reveal severe degenerative changes in the knee. And a 6 mm jarrett of radiodense debris along the anterior lateral upper leg could represent external artifact or retained foreign body. Focal calcifications in the posterior mid leg soft tissues could be vascular or could represent heterotopic ossification. Patient denies any fever, chills or sweats, nausea or vomiting, bowel movement changes or shortness of breath or chest pain. Patient doesn't having burning with urination off and on for the last 2 weeks. Repeat urinalysis today is essentially unremarkable. Awaiting urine culture. We'll continue the Macrobid. Also no chest x-ray from November 01 was negative. On 11/03/2018. Patient is currently alert and oriented resting comfortably in bed patient is complaining of increased right sided rib pain from where she fell. Will order chest x-ray to rule out rib fracture patient denies any chest pain or shortness breath. Patient denies nausea vomiting or diarrhea. Patient denies any urinary burning or frequency. On 11/04/2018 patient was seen and examined on the medical floor she is alert and oriented 3 in no apparent distress there is no fever or chills no headache or dizziness no chest pain no shortness of breath no cough no nausea or vomiting no abdominal pain no diarrhea and no urinary symptoms Objective - Vital Signs Vital signs: Vital Signs Temp 97.9 F 11/04/18 07:00 Pulse 60 11/04/18 07:00 Resp 18 11/04/18 07:00 BP 128/78 11/04/18 07:00 Pulse Ox 94 L 11/04/18 07:00 Intake & Output 11/03/18 11/04/18 11/04/18 18:59 06:59 18:59 Intake Total 400 590 Balance 400 590 Intake: IV 400 Sodium Chloride 0.9% 1, 400 000 ml @ 50 mls/hr IV . Q20H [facility] Rx#:[id number] Oral 590 Other: Voiding Method Diaper # Voids 3 1 # Bowel Movements 1 - Exam Head normocephalic. Hematoma noted in the right parietal area Neck supple no JVD no goiter Lungs clear to auscultation bilaterally no wheezing or crackles Heart regular rate and rhythm S1-S2, no rub or gallop Abdomen is soft nontender nondistended positive bowel sounds no hepatosplenomegaly Extremities no edema no cyanosis or clubbing Neuro alert and orientated to 3. Lower extremity strength appears to be equal about 4 out of 5 bilaterally. Patient is able to do straight leg lift with no pain in her back Back thoracic spine abrasion no tenderness with palpation - Labs CBC & Chem 7: 11/04/18 07:16 11/04/18 07:16 Labs: Abnormal Lab Results - Last 24 Hours (Table) 11/04/18 11/04/18 Range/Units 07:16 07:16 RDW 17.2 H (11.5-15.5) % Lymphocytes # 0.9 L (1.0-4.8) k/uL Chloride 108 H (98-107) mmol/L Total Protein 5.8 L (6.3-8.2) g/dL Albumin 3.2 L (3.5-5.0) g/dL Microbiology - Last 24 Hours (Table) 11/02/18 12:00 Urine Culture - Preliminary Urine,Clean Catch Gram Neg Bacilli Assessment and Plan Plan: 1. Generalized weakness with fall and no loss of consciousness. Possibly related to dehydration, UTI and medical debility. Chest x-ray negative. Continue the IV fluids and antibiotic. Consult physical therapy. Chest x-ray has been ordered to rule out Rib fracture. Dr. Thurston has been consulted 2. UTI: Repeat Urinalysis showing improvement with Macrobid. Await urine culture. Continue IV fluids 3. Small right posterior parietal scalp hematoma measuring 3 mm 4. Left leg pain no evidence of fracture evidence of severe degenerative changes in the knee. 5. History of COPD stable 6. Essential hypertension 7. Rheumatoid arthritis 8. Abdominal aortic aneurysm 9. Generalized anxiety disorder continue Ativan 10. Depression continue Zoloft 11. History of parathyroid tumor 12. Hypothyroidism continue Synthroid DVT prophylaxis SCDs due to small right posterior hematoma and GI prophylaxis Protonix
--- NOTE | 2018-11-05 09:42 | P.PN ---
Subjective Progress Note Date: 11/05/18 This is a 88-year-old female with a known past medical history of COPD, hypertension, rheumatoid arthritis, parathyroid tumor, hypothyroidism, generalized anxiety disorder and abdominal aortic aneurysm. Patient initially presented to the ER yesterday with complaints of generalized weakness and burning with urination. And she is complaining of pain in the left tibia fibula area. She denies any new injury. She was found to have a urinary tract infection started on Macrobid and discharged home. Patient reports she was feeling very weak and having difficulty getting out of bed this morning. When she was finally able to get herself out of bed she fell and hit the back of her head she thinks on her book case. There is no loss of consciousness. 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 She felt that this right leg gave out on her. She denies any lower back pain. She does have an abrasion on the thoracic area. Computed tomography scan of the brain and cervical spine were completed showed no acute fracture. No acute intracranial hemorrhage, mass effect or midline shift. There is a small right posterior parietal scalp hematoma measuring 3 mm in greatest thickness. EKG showing a normal sinus rhythm. Yesterday she was mildly dehydrated with a creatinine of 1.10 today creatinine is 0.97 chest x-ray from November 01 was negative as well as the x-ray on the left tibia fibula negative for any fractures. It did reveal severe degenerative changes in the knee. And a 6 mm jarrett of radiodense debris along the anterior lateral upper leg could represent external artifact or retained foreign body. Focal calcifications in the posterior mid leg soft tissues could be vascular or could represent heterotopic ossification. Patient denies any fever, chills or sweats, nausea or vomiting, bowel movement changes or shortness of breath or chest pain. Patient doesn't having burning with urination off and on for the last 2 weeks. Repeat urinalysis today is essentially unremarkable. Awaiting urine culture. We'll continue the Macrobid. Also no chest x-ray from November 01 was negative. On 11/03/2018. Patient is currently alert and oriented resting comfortably in bed patient is complaining of increased right sided rib pain from where she fell. Will order chest x-ray to rule out rib fracture patient denies any chest pain or shortness breath. Patient denies nausea vomiting or diarrhea. Patient denies any urinary burning or frequency. On 11/04/2018 patient was seen and examined on the medical floor she is alert and oriented 3 in no apparent distress there is no fever or chills no headache or dizziness no chest pain no shortness of breath no cough no nausea or vomiting no abdominal pain no diarrhea and no urinary symptoms On 11/05/2018 patient is alert and oriented 3 in no apparent distress, there is no fever or chills no headache or dizziness no chest pain no shortness of breath no cough no nausea or vomiting no abdominal pain no diarrhea and no urinary symptoms, discharge destination discussed in details with patient, at this time she wishes to be discharged to her home with home care she already has private care for 2 hours daily she does not wish to go to a rehab at this point. We will discuss her case with Dr. Tan tomorrow and assess possibility of her going home. Objective - Vital Signs Vital signs: Vital Signs Temp 97.9 F 11/05/18 07:00 Pulse 55 L 11/05/18 07:59 Resp 16 11/05/18 07:00 BP 151/73 11/05/18 07:00 Pulse Ox 95 11/05/18 07:00 Intake & Output 11/04/18 11/05/18 11/05/18 18:59 06:59 18:59 Intake Total 800 Balance 800 Intake: Intake, IV Titration 800 Amount Sodium Chloride 0.9% 1, 800 000 ml @ 50 mls/hr IV . Q20H [facility] Rx#:[id number] Other: Voiding Method Diaper Incontinent # Voids 2 2 # Bowel Movements 1 - Exam Head normocephalic. Hematoma noted in the right parietal area Neck supple no JVD no goiter Lungs clear to auscultation bilaterally no wheezing or crackles Heart regular rate and rhythm S1-S2, no rub or gallop Abdomen is soft nontender nondistended positive bowel sounds no hepatosplenomegaly Extremities no edema no cyanosis or clubbing Neuro alert and orientated to 3. Lower extremity strength appears to be equal about 4 out of 5 bilaterally. Patient is able to do straight leg lift with no pain in her back Back thoracic spine abrasion no tenderness with palpation - Labs CBC & Chem 7: 11/05/18 07:59 11/05/18 07:59 Labs: Abnormal Lab Results - Last 24 Hours (Table) 11/05/18 11/05/18 Range/Units 07:59 07:59 RDW 17.0 H (11.5-15.5) % Plt Count 139 L (150-450) k/uL Potassium 5.2 H (3.5-5.1) mmol/L Chloride 110 H (98-107) mmol/L Total Protein 5.7 L (6.3-8.2) g/dL Albumin 3.1 L (3.5-5.0) g/dL Microbiology - Last 24 Hours (Table) 11/02/18 12:00 Urine Culture - Final Urine,Clean Catch Citrobacter freundii Assessment and Plan Plan: 1. Generalized weakness with fall and no loss of consciousness. Possibly related to dehydration, UTI and medical debility. Chest x-ray negative. Continue the IV fluids and antibiotic. Consult physical therapy. Chest x-ray has been ordered to rule out Rib fracture. Dr. Thurston has been consulted 2. UTI: Repeat Urinalysis showing improvement with Macrobid. Await urine culture. Continue IV fluids 3. Small right posterior parietal scalp hematoma measuring 3 mm 4. Left leg pain no evidence of fracture evidence of severe degenerative changes in the knee. 5. History of COPD stable 6. Essential hypertension 7. Rheumatoid arthritis 8. Abdominal aortic aneurysm 9. Generalized anxiety disorder continue Ativan 10. Depression continue Zoloft 11. History of parathyroid tumor 12. Hypothyroidism continue Synthroid DVT prophylaxis SCDs due to small right posterior hematoma and GI prophylaxis Protonix
[2018-11-05 21:10] VITALS: RESP 17
[2018-11-06] MEDS: LEVOTHYROXINE 88 MCG TAB PO SCH (05:58)
[2018-11-06 07:42] LABS: Anisocytosis Slight; Basophils % (A) 1 %; Eosinophils # (A) 0.2 k/uL (0-0.7); Eosinophils % (A) 5 %; HCT 35.5 % (34.0-46.0); HGB 12.3 gm/dL (11.4-16.0); Lymphocytes # (A) 0.8 k/uL (1.0-4.8); Lymphocytes % (A) 23 %; MCH 31.4 pg (25.0-35.0); MCHC 34.6 g/dL (31.0-37.0); MCV 90.7 fL (80.0-100.0); Monocytes # (A) 0.3 k/uL (0-1.0); Monocytes % (A) 8 %; Neutrophils # (A) 2.2 k/uL (1.3-7.7); Neutrophils % (A) 62 %; Platelet Count 161 k/uL (150-450); RBC 3.92 m/uL (3.80-5.40); RDW 17.4 % (11.5-15.5); WBC 3.6 k/uL (3.8-10.6)
[2018-11-06 07:57] LABS: Albumin 2.9 g/dL (3.5-5.0); Calcium 9.8 mg/dL (8.4-10.2); Potassium 4.6 mmol/L (3.5-5.1); Total Bilirubin 0.5 mg/dL (0.2-1.3); Total Protein 5.5 g/dL (6.3-8.2)
[2018-11-06 08:18] VITALS: BP 144/81; PULSE 60; TEMP 98.1
[2018-11-06] MEDS: MELOXICAM 7.5 MG TAB PO SCH (08:48)
[2018-11-06] MEDS: SERTRALINE 100 MG TAB PO SCH (08:48)
[2018-11-06] MEDS: TRIMETHOPRIM 100 MG TAB PO SCH (08:48)
[2018-11-06] MEDS: PRAVASTATIN SODIUM 20 MG TAB PO SCH (08:48)
[2018-11-06] MEDS: LORazepam 1 MG TAB PO SCH (08:49)
[2018-11-06] MEDS: LISINOPRIL 10 MG TAB PO SCH (08:49)
[2018-11-06] MEDS: CHOLECALCIFEROL 1,000 UNIT TAB PO SCH (08:49)
[2018-11-06] MEDS: BISOPROLOL 5 MG TAB PO SCH (08:49)
[2018-11-06] MEDS: NITROFURANTOIN MONOHYD/M-CRYST 100 MG CAP PO SCH (08:49)
[2018-11-06] MEDS: PANTOPRAZOLE 40 MG TABLET PO SCH (08:49)
--- NOTE | 2018-11-06 14:56 | P.DS ---
Providers Date of admission: 11/03/18 11:33 Expected date of discharge: 11/06/18 Attending physician: Howie Negrete Consults: 11/03/18 13:14 Consult Physician Routine Consulting Provider: Sander Mehta Consult Reason/Comments: Increased weakness Do you want consulting provider notified?: Yes Primary care physician: Howie Caden [facility] Course: Discharge diagnosis 1. Generalized weakness with fall and no loss of consciousness. Possibly related to dehydration, UTI and medical debility. Chest x-ray negative. Continue the IV fluids and antibiotic. Consult physical therapy. Chest x-ray has been ordered to rule out Rib fracture. Dr. Thurston has been consulted 2. UTI: Urine culture growing Citrobacter freundii. We'll switch antibiotic to Ceftin 500 mg twice a day for 5 more days 3. Small right posterior parietal scalp hematoma measuring 3 mm 4. Left leg pain no evidence of fracture evidence of severe degenerative changes in the knee. 5. History of COPD with Mild exacerbation this morning. Patient will given nebulizer treatment. Wheezing has resolved. 6. Essential hypertension 7. Rheumatoid arthritis 8. Abdominal aortic aneurysm 9. Generalized anxiety disorder continue Ativan 10. Depression continue Zoloft 11. History of parathyroid tumor 12. Hypothyroidism continue Synthroid 13. Moderate protein calorie malnutrition and ensure drinks 3 times a day 14. 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 Large hiatal hernia noted on chest x-ray Hospital course This is a 88-year-old female with a known past medical history of COPD, hypertension, rheumatoid arthritis, parathyroid tumor, hypothyroidism, generalized anxiety disorder and abdominal aortic aneurysm. Patient initially presented to the ER yesterday with complaints of generalized weakness and burning with urination. And she is complaining of pain in the left tibia fibula area. She denies any new injury. She was found to have a urinary tract infection started on Macrobid and discharged home. Patient reports she was feeling very weak and having difficulty getting out of bed this morning. When she was finally able to get herself out of bed she fell and hit the back of her head she thinks on her book case. There is no loss of consciousness. 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 She felt that this right leg gave out on her. She denies any lower back pain. She does have an abrasion on the thoracic area. Computed tomography scan of the brain and cervical spine were completed showed no acute fracture. No acute intracranial hemorrhage, mass effect or midline shift. There is a small right posterior parietal scalp hematoma measuring 3 mm in greatest thickness. EKG showing a normal sinus rhythm. Yesterday she was mildly dehydrated with a creatinine of 1.10 today creatinine is 0.97 chest x-ray from November 01 was negative as well as the x-ray on the left tibia fibula negative for any fractures. It did reveal severe degenerative changes in the knee. And a 6 mm jarrett of radiodense debris along the anterior lateral upper leg could represent external artifact or retained foreign body. Focal calcifications in the posterior mid leg soft tissues could be vascular or could represent heterotopic ossification. Patient denies any fever, chills or sweats, nausea or vomiting, bowel movement changes or shortness of breath or chest pain. Patient doesn't having burning with urination off and on for the last 2 weeks. Repeat urinalysis today is essentially unremarkable. Awaiting urine culture. We'll continue the Macrobid. Also no chest x-ray from November 01 was negative. On 11/03/2018. Patient is currently alert and oriented resting comfortably in bed patient is complaining of increased right sided rib pain from where she fell. Will order chest x-ray to rule out rib fracture patient denies any chest pain or shortness breath. Patient denies nausea vomiting or diarrhea. Patient denies any urinary burning or frequency. On 11/04/2018 patient was seen and examined on the medical floor she is alert and oriented 3 in no apparent distress there is no fever or chills no headache or dizziness no chest pain no shortness of breath no cough no nausea or vomiting no abdominal pain no diarrhea and no urinary symptoms On 11/05/2018 patient is alert and oriented 3 in no apparent distress, there is no fever or chills no headache or dizziness no chest pain no shortness of breath no cough no nausea or vomiting no abdominal pain no diarrhea and no urinary symptoms, discharge destination discussed in details with patient, at this time she wishes to be discharged to her home with home care she already has private care for 2 hours daily she does not wish to go to a rehab at this point. We will discuss her case with Dr. Tan tomorrow and assess possibility of her going home. 11/06/2018 patient continue to work with physical therapy she is a candidate for placement [facility]. Patient will be discharged to [facility] for further rehabilitation. She'll continue Ceftin 5 more days for UTI. Patient is medically stable for discharge. Patient reports some wheezing earlier this morning which is chronic for her. She'll be given a nebulizer treatment. Fluids been hep-locked. Patient feels ready for discharge. Vitals are stable. She is satting 95% on room air. I performed an examination of the patient and discussed their management with the physician Supervisor Stripping. I have reviewed the Physician Supervisor Stripping's notes and agree with the documented findings and plan of care Patient Condition at Discharge: Stable Plan - Discharge Summary Discharge Rx Participant: No New Discharge Prescriptions: New Cefuroxime Axetil [Ceftin] 500 mg PO BID 5 Days #10 tab Continue Esomeprazole Magnesium [NexIUM] 40 mg PO DAILY Albuterol Inhaler [Ventolin Hfa Inhaler] 1 - 2 puff INHALATION RT-Q6H PRN PRN Reason: Shortness Of Breath Trimethoprim 100 mg PO DAILY Cholecalciferol [Vitamin D3] 1,000 unit PO DAILY Pravastatin Sodium [Pravachol] 20 mg PO DAILY Bisoprolol [Zebeta] 5 mg PO DAILY Levothyroxine Sodium [Synthroid] 88 mcg PO DAILY Enalapril [Vasotec] 5 mg PO DAILY Sertraline [Zoloft] 100 mg PO DAILY Celecoxib [CeleBREX] 200 mg PO DAILY Changed LORazepam [Ativan] 1 mg PO BID #6 tab Discontinued Nitrofurantoin Monohyd/M-Cryst [Macrobid] 100 mg PO Q12HR #20 cap Discharge Medication List Esomeprazole Magnesium [NexIUM] 40 mg PO DAILY 07/27/14 [History] Albuterol Inhaler [Ventolin Hfa Inhaler] 1 - 2 puff INHALATION RT-Q6H PRN [History] Cholecalciferol [Vitamin D3] 1,000 unit PO DAILY 07/04/17 [History] Trimethoprim 100 mg PO DAILY 07/04/17 [History] Bisoprolol [Zebeta] 5 mg PO DAILY 11/01/18 [History] Celecoxib [CeleBREX] 200 mg PO DAILY 11/01/18 [History] Enalapril [Vasotec] 5 mg PO DAILY 11/01/18 [History] Levothyroxine Sodium [Synthroid] 88 mcg PO DAILY 11/01/18 [History] Pravastatin Sodium [Pravachol] 20 mg PO DAILY 11/01/18 [History] Sertraline [Zoloft] 100 mg PO DAILY 11/01/18 [History] Cefuroxime Axetil [Ceftin] 500 mg PO BID 5 Days #10 tab 11/06/18 [Rx] LORazepam [Ativan] 1 mg PO BID #6 tab 11/06/18 [Rx] Follow up Appointment(s)/Referral(s): Julio Thurston MD [STAFF PHYSICIAN] - 1 Week Howie Negrete MD [Primary Care Provider] - 1 Week Activity/Diet/Wound Care/Special Instructions: diet: cardiac, Ensure 1 can TID with meals Activity: as tolerated ok to Discharge to [facility] Discharge Disposition: TRANSFER TO SNF/ECF
== END 2018-11-06 16:19 | DRG 690 ==
LOC: EC 08:46 → 4SSUR 12:28 → OBSVTOIN 11-03 11:33
PROVIDERS: ADMIT Internal Medicine; ATTEND Internal Medicine
DX: N39.0 Urinary tract infection, site not specified (principal); J44.1 Chronic obstructive pulmonary disease with (acute) exacerbation; N17.9 Acute kidney failure, unspecified; E03.9 Hypothyroidism, unspecified; E78.5 Hyperlipidemia, unspecified; E86.0 Dehydration; F32.9 Major depressive disorder, single episode, unspecified; F41.1 Generalized anxiety disorder; I10 Essential (primary) hypertension; I71.4 Abdominal aortic aneurysm, without rupture; K21.9 Gastro-esophageal reflux disease without esophagitis; K44.9 Diaphragmatic hernia without obstruction or gangrene; M06.9 Rheumatoid arthritis, unspecified; M25.78 Osteophyte, vertebrae; M43.12 Spondylolisthesis, cervical region; S00.03XA Contusion of scalp, initial encounter; B96.89 Other specified bacterial agents as the cause of diseases classified elsewhere; Z96.653 Presence of artificial knee joint, bilateral; Z96.1 Presence of intraocular lens; M17.12 Unilateral primary osteoarthritis, left knee; W19.XXXA Unspecified fall, initial encounter; Z79.890 Hormone replacement therapy; Z79.899 Other long term (current) drug therapy; Z82.0 Family history of epilepsy and other diseases of the nervous system; Z82.49 Family history of ischemic heart disease and other diseases of the circulatory system; Z86.73 Personal history of transient ischemic attack (TIA), and cerebral infarction without residual deficits; Z87.891 Personal history of nicotine dependence; Z90.710 Acquired absence of both cervix and uterus; Z91.81 History of falling; Z98.42 Cataract extraction status, left eye; Z98.41 Cataract extraction status, right eye
CPT/HCPCS: 36415; 70450; 71046; 72125; 80053; 81003; 84484; 85025; 87077; 87086; 87186; 93005; 94640; 99285

== ENCOUNTER 2020-03-26 12:22 | Observation (INO) | payer MEDICARE, OTHER ==
[2020-03-26] MEDS ORDERED: fentaNYL (PF) 50 MCG/ML 2 ML AMP IVP STA (12:44)
--- NOTE | 2020-03-26 13:20 | ED ---
General Adult HPI - General Chief complaint: Fall Stated complaint: fall Time Seen by Provider: 03/26/20 12:27 Source: patient, EMS, RN notes reviewed, old records reviewed Mode of arrival: EMS Limitations: altered mental status - History of Present Illness Initial comments: 89-year-old female visiting for evaluation of fall. Patient fell from her whee lchair while reaching forward. She fell striking her head and right arm. Patient denies loss consciousness. She states she fell forward out of the wheelchair directly onto her forehead and right arm. No anticoagulation. No chest pain or abdominal pain. No lower extremity injury or pain. - Related Data Home Medications Medication Instructions Recorded Confirmed Cholecalciferol [Vitamin D3 (25 1,000 unit PO DAILY 07/04/17 03/26/20 Mcg = 1000 Iu)] Trimethoprim 100 mg PO DAILY 07/04/17 03/26/20 Bisoprolol [Zebeta] 5 mg PO DAILY 11/01/18 03/26/20 Enalapril [Vasotec] 5 mg PO DAILY 11/01/18 03/26/20 Pravastatin Sodium [Pravachol] 20 mg PO HS 11/01/18 03/26/20 Sertraline [Zoloft] 100 mg PO HS 11/01/18 03/26/20 ARIPiprazole [Abilify] 2 mg PO DAILY 03/26/20 03/26/20 Acetaminophen [Tylenol 8 Hour] 650 mg PO Q4H PRN 03/26/20 03/26/20 Albuterol Sulfate [Albuterol 1 - 2 puff INHALATION RT-Q6H PRN 03/26/20 03/26/20 Sulfate Hfa] Bisacodyl [Dulcolax] 10 mg RECTAL DAILY PRN 03/26/20 03/26/20 Caldesene Powder 1 applic TOPICAL TID 03/26/20 03/26/20 Levothyroxine Sodium [Synthroid] 100 mcg PO DAILY@0600 03/26/20 03/26/20 Loperamide [Imodium] 2 mg PO QID PRN 03/26/20 03/26/20 Magnesium Hydroxide [Milk of 2,400 mg PO DAILY PRN 03/26/20 03/26/20 Magnesia] Na Phos,M-B/Na Phos,Di-Ba [Fleet 133 ml RECTAL DAILY PRN 03/26/20 03/26/20 Adult] Omeprazole 20 mg PO DAILY 03/26/20 03/26/20 Vit C/E/Zn/Coppr/Lutein/Zeaxan 1 cap PO DAILY 03/26/20 03/26/20 [Preservision Areds 2 Softgel] guaiFENesin [guaiFENesin Oral 200 mg PO Q4H PRN 03/26/20 03/26/20 Solution] Previous Rx's Medication Instructions Recorded LORazepam [Ativan] 1 mg PO BID #6 tab 11/06/18 Allergies Allergy/AdvReac Type Severity Reaction Status Date / Time Calcium Channel Blocking Allergy Unknown Verified 03/26/20 13:27 Agent Dilt [Calcium Channel Blocking Agents-Kevin] iodine Allergy Rash/Hives Verified 03/26/20 13:27 levofloxacin [From Levaquin] Allergy Unknown Verified 03/26/20 13:27 codeine AdvReac Chest Pain Verified 03/26/20 13:27 Review of Systems ROS Statement: Those systems with pertinent positive or pertinent negative responses have been documented in the HPI. ROS Other: All systems not noted in ROS Statement are negative. Past Medical History Past Medical History: COPD, Eye Disorder, GERD/Reflux, Hyperlipidemia, Hyper tension, Rheumatoid Arthritis (RA), Thyroid Disorder, Vascular Disorder Additional Past Medical History / Comment(s): Irregular heart beat (pt does not know name of arrhythmia), thoracic aneurysm, R macular degeneration, large hiatal hernia, IBS, chronic abdominal pain, parathyroid tumor/hypothyroid, UTIs, incontinence of urine, essential tremors, bilateral carpal tunnel syndrome, past L rib fractures with small pneumothorax, gait dysfunction. History of Any Multi-Drug Resistant Organisms: None Reported Past Surgical History: Cholecystectomy, Hysterectomy, Joint Replacement Additional Past Surgical History / Comment(s): Total R knee arthroplasty, bilateral cataract removal/lens implants, EGD/colonoscopy/24 hour motility test Past Anesthesia/Blood Transfusion Reactions: No Reported Reaction Past Psychological History: Anxiety, Depression Smoking Status: Former smoker Past Alcohol Use History: None Reported Past Drug Use History: None Reported - Past Family History Mother Family Medical History: Hypertension Additional Family Medical History / Comment(s): passed from abdominal aneurysm Father Additional Family Medical History / Comment(s): parkinsons Brother(s) Additional Family Medical History / Comment(s): esophageal issues Sister(s) Additional Family Medical History / Comment(s): mobility issues Son(s) Family Medical History: No Reported History General Exam Limitations: altered mental status General appearance: alert, in no apparent distress Head exam: Present: normocephalic, other (Large frontal hematoma) Eye exam: Present: normal appearance, PERRL, EOMI Neck exam: Present: normal inspection. Absent: tenderness, meningismus, full ROM (C-collar placed in triage) Respiratory exam: Present: normal lung sounds bilaterally. Absent: respiratory distress, wheezes Cardiovascular Exam: Present: regular rate, normal rhythm GI/Abdominal exam: Present: soft. Absent: distended, tenderness, rebound Extremities exam: Present: other (. Swelling of the right shoulder, right elbow with ecchymosis on the anterior surface of the right elbow. Decreased range of motion secondary to pain. Distal pulses intact.) Neurological exam: Present: alert, oriented X3, CN II-XII intact. Absent: motor sensory deficit Psychiatric exam: Present: normal affect, normal mood Skin exam: Present: warm, dry, intact Course Vital Signs 03/26/20 03/26/20 12:29 13:00 Temperature 98.1 F 98.2 F Pulse Rate 73 76 Respiratory 24 18 Rate Blood Pressure 130/70 119/68 O2 Sat by Pulse 96 97 Oximetry Medical Decision Making - Medical Decision Making 89-year-old with mechanical fall, right arm pain, head injury. Head CT negative for intracranial hemorrhage or mass effect. CT negative for fracture of the cervical spine. X-rays of the right shoulder reveal a proximal humeral head fracture. Patient is placed in a sling. She can be discharged with regard to this injury however her pain is significant and difficult to control with IV medication. We will admit this patient for pain control to internal medicine with orthopedics on consult. Disposition Clinical Impression: Fall, Proximal humerus fracture Disposition: ADMITTED IP TO THIS [facility] Condition: Stable Is patient prescribed a controlled substance at d/c from ED?: No Referrals: Howie Negrete MD [Primary Care Provider] - 1-2 days Decision to Admit Reason: Admit from EC Decision Date: 03/26/20 Decision Time: 16:10
--- NOTE | 2020-03-26 14:28 | CT ---
EXAMINATION TYPE: CT brain shun saxena con DATE OF EXAM: 03/26/2020 COMPARISON: 11/02/2018 HISTORY: Fall from wheelchair CT DLP: 1295.8 mGycm, Automated exposure control for dose reduction was used. CONTRAST: Patient injected with mL of . CT of the brain is performed utilizing 3 mm thick sections through the posterior fossa and 3 mm thick sections through the remaining calvarium. Study is performed within 24 hours of arrival to the hospital. No abnormal hyperdensity is present to suggest an acute intracranial hemorrhage. No mass lesion is evident. No acute infarcts are evident. Mild periventricular white matter hypodensity is present, likely on t he basis of chronic white matter ischemic changes. Ventricles and sulci are prominent for the patient age. There is soft tissue swelling over the left frontal region. No underlying fracture is evident Paranasal sinuses and mastoid air cells within the [id number] are clear. IMPRESSIONS: 1. No acute intracranial process. 2. Soft tissue swelling left frontal region. 3. Periventricular white matter chronic appearing ischemic type change with atrophy, stable from 2019 CT cervical spine. COMPARISON: None CT of the cervical spine is performed in the axial plane at 2 mm thick sections. Reconstructed image s in the coronal, and sagittal plane are reviewed on the computer. No acute fractures are evident. There is a grade 1 spondylolisthesis of C7 anterior on T1. Posterior vertebral body spurring is noted C5-6. Minimal spurring is present C6-7. There is loss of disc height throughout the cervical spine greatest at C5-6 and C6-7. Vertebral body heights are preserved. No spinal canal stenosis is evident. Facet hypertrophy is present contributing to foraminal narrowing. Uncovertebral joint hypertrophy is present C5-6 contributing to foraminal stenosis. Incidental note is made of aneurysmal dilatation of the ascending thoracic aorta at the level of main pulmonary artery measuring 4.8 cm. IMPRESSIONS: 1. Grade 1 spondylolisthesis of C7 anterior and T1. 2. Loss of disc height throughout the cervical spine, greatest at C6-7. 3. Some foraminal cyst narrowing through the lower cervical spine due to uncovertebral joint hypertro phy and facet hypertrophy. 4. Aneurysmal dilatation of 4.9 cm noted within the ascending thoracic aorta.
--- NOTE | 2020-03-26 15:37 | XR ---
AP pelvis HISTORY: Trauma and pain Single frontal view the pelvis Correlation to left hip dated 12/15/2016 Bone mineralization is reduced. Joint spaces and alignment are maintained. Degenerative disc changes are present in the lower lumbar spine. There are probable vascular calcifications within the pelvis IMPRESSION: No fracture or dislocation.
--- NOTE | 2020-03-26 15:40 | XR ---
Right shoulder HISTORY: Trauma and pain 3 views the right shoulder Correlation to chest x-ray dated 11/03/2018 There is impacted proximal right humeral head fracture. Osteophytic changes are present. There is no evident dislocation. Right lung apex as visualized is normal. There are overlying artifacts. IMPRESSION: There is proximal right humeral fracture.
--- NOTE | 2020-03-26 15:42 | XR ---
EXAMINATION TYPE: XR chest 1V DATE OF EXAM: 03/26/2020 COMPARISON: Prior chest x-ray 11/03/2018 HISTORY: Trauma and pain TECHNIQUE: Single frontal view of the chest is obtained. FINDINGS: There is no focal air space opacity, pleural effusion, or pneumothorax seen. The cardiac silhouette size is enlarged as on prior exam, rotation may accentuate the appearance. The osseous s tructures are remarkable proximal right humeral fracture which appears impacted. Patient is rotated. Arthropathy is present within the shoulders. Aorta is dense. There is a large hiatal hernia with fixe d intrathoracic stomach. There are overlying artifacts, patient is rotated. IMPRESSION: Proximal right humeral fracture.
--- NOTE | 2020-03-26 15:43 | XR ---
Right elbow HISTORY: Trauma and pain 3 views the right elbow, no comparisons There is marked arthropathy present. Bone mineralization is reduced. There is marginal spurring and j oint space loss. Hypertrophic changes are present. No evident joint effusion. There is soft tissue sw elling present. IMPRESSION: No fracture or dislocation is evident.
[2020-03-26] MEDS ORDERED: LOPERAMIDE 2 MG CAP PO PRN (17:34)
[2020-03-26] MEDS ORDERED: guaiFENesin SYRUP 100MG/5ML 200 MG/10 ML CUP PO PRN (17:34)
[2020-03-26] MEDS ORDERED: BISACODYL 10 MG SUPP RECTAL PRN (17:34)
[2020-03-26] MEDS ORDERED: MAGNESIUM HYDROXIDE 2,400 MG/10 ML CUP PO PRN (17:34)
[2020-03-26] MEDS ORDERED: NA PHOS,M-B/NA PHOS,DI-BA 133 ML ENEMA RECTAL PRN (17:34)
[2020-03-26] MEDS ORDERED: ALBUTEROL NEBULIZED 2.5 MG/3 ML INHALATION PRN (17:34)
[2020-03-26] MEDS ORDERED: ACETAMINOPHEN TAB 325 MG TAB ONE (22:55)
[2020-03-27] MEDS: LEVOTHYROXINE 100 MCG TAB PO SCH (05:31)
[2020-03-27] MEDS: PRAVASTATIN SODIUM 20 MG TAB PO SCH ×2 (05:32→20:53)
[2020-03-27] MEDS: LORazepam 1 MG TAB PO SCH ×3 (05:32→20:53)
[2020-03-27] MEDS: SERTRALINE 100 MG TAB PO SCH ×2 (05:33→20:53)
[2020-03-27] MEDS: ZINC OXIDE-CORN STARCH 142 GM POWDER TOPICAL SCH ×4 (05:33→20:53)
[2020-03-27] MEDS: MORPHINE SULFATE 4 MG/ML SYRINGE IVP PRN ×2 (05:36→10:26)
[2020-03-27 06:10] LABS: Appearance,Urine Cloudy (Clear); Bacteria,Urine Occasional /hpf; Bilirubin,Urine Negative (Negative); Blood,Urine Negative (Negative); Color,Urine Yellow; Glucose,Urine (UA) Negative (Negative); Ketones,Urine Trace (Negative); Leukocyte Esterase,Urine Large (Negative); Mucus,Urine Rare /hpf; Nitrite,Urine Negative (Negative); Protein,Urine Trace (Negative); RBC,Urine 11 /hpf (0-5); Specific Gravity,Urine 1.022 (1.001-1.035); Squamous Epithelial Cell,Urine 1 /hpf (0-4); WBC,Urine 117 /hpf (0-5)
[2020-03-27] MEDS: LISINOPRIL 10 MG TAB PO SCH (07:23)
[2020-03-27] MEDS: CHOLECALCIFEROL 1,000 UNIT TAB PO SCH (07:23)
[2020-03-27] MEDS: PANTOPRAZOLE 40 MG TABLET PO SCH (07:23)
[2020-03-27] MEDS: BISOPROLOL 5 MG TAB PO SCH (07:24)
[2020-03-27] MEDS: ARIPiprazole 2 MG TAB PO SCH (07:24)
[2020-03-27] MEDS: VIT A,C & E-LUTEIN-MINERALS 1 EACH TAB PO SCH (07:24)
[2020-03-27] MEDS: TRIMETHOPRIM 100 MG TAB PO SCH (07:24)
--- NOTE | 2020-03-27 11:44 | P.CNOR ---
History of Present Illness - [facility] Consult date: 03/27/20 Consult reason: fracture History of present illness: patient is an 89-year-old female who presented to [facility] for evaluation after a fall that occurred at [facility]. Patient has been living there for about 3 years. Patient was apparently leaning forward when she fell out of her wheelchair landing on her right arm and head and face region. Upon arrival, imaging and lab tests were done. Images demonstrated a right proximal humerus fracture. Head and neck CT were negative, pelvic x-rays were negative along with elbow x-rays for any acute osseous abnormalities. Patient was admitted under internal medicine, our orthopedic team was consulted. Patient was evaluated today at bedside, she just received some IV pain medication so she was pretty lethargic. She did answer most my questions adequately. Besides the right upper extremity, she has no other orthopedic complaints at this time. She is utilizing a basic arm sling at this time. She notes most of the pain in the shoulder when she moves. She denies any previous surgery involving the right upper extremity. Review of Systems Constitutional: Reports as per HPI Past Medical History Past Medical History: COPD, Eye Disorder, GERD/Reflux, Hyperlipidemia, Hypertension, Rheumatoid Arthritis (RA), Thyroid Disorder, Vascular Disorder Additional Past Medical History / Comment(s): Irregular heart beat (pt does not know name of arrhythmia), thoracic aneurysm, R macular degeneration, large hiatal hernia, IBS, chronic abdominal pain, parathyroid tumor/hypothyroid, UTIs, incontinence of urine, essential tremors, bilateral carpal tunnel syndrome, past L rib fractures with small pneumothorax, gait dysfunction. History of Any Multi-Drug Resistant Organisms: None Reported Past Surgical History: Cholecystectomy, Hysterectomy, Joint Replacement Additional Past Surgical History / Comment(s): Total R knee arthroplasty, bilateral cataract removal/lens implants, EGD/colonoscopy/24 hour motility test Past Anesthesia/Blood Transfusion Reactions: No Reported Reaction Past Psychological History: Anxiety, Depression Additional Psychological History / Comment(s): Pt resides alone in a [place] apartment. She has help provided thru [employer]. She manages her own medications. She no longer drives, her nephew takes her to appts. Smoking Status: Former smoker Past Alcohol Use History: None Reported Additional Past Alcohol Use History / Comment(s): Pt smoked from 1943 until 89 Past Drug Use History: None Reported - Past Family History Mother Family Medical History: Hypertension Additional Family Medical History / Comment(s): passed from abdominal aneurysm Father Additional Family Medical History / Comment(s): parkinsons Brother(s) Additional Family Medical History / Comment(s): esophageal issues Sister(s) Additional Family Medical History / Comment(s): mobility issues Son(s) Family Medical History: No Reported History Medications and Allergies Home Medications Medication Instructions Recorded Confirmed Type Cholecalciferol [Vitamin D3 (25 1,000 unit PO DAILY 07/04/17 03/26/20 History Mcg = 1000 Iu)] Trimethoprim 100 mg PO DAILY 07/04/17 03/26/20 History Bisoprolol [Zebeta] 5 mg PO DAILY 11/01/18 03/26/20 History Enalapril [Vasotec] 5 mg PO DAILY 11/01/18 03/26/20 History Pravastatin Sodium [Pravachol] 20 mg PO HS 11/01/18 03/26/20 History Sertraline [Zoloft] 100 mg PO HS 11/01/18 03/26/20 History LORazepam [Ativan] 1 mg PO BID #6 tab 11/06/18 03/26/20 Rx ARIPiprazole [Abilify] 2 mg PO DAILY 03/26/20 03/26/20 History Acetaminophen [Tylenol 8 Hour] 650 mg PO Q4H PRN 03/26/20 03/26/20 History Albuterol Sulfate [Albuterol 1 - 2 puff INHALATION RT-Q6H PRN 03/26/20 03/26/20 History Sulfate Hfa] Bisacodyl [Dulcolax] 10 mg RECTAL DAILY PRN 03/26/20 03/26/20 History Caldesene Powder 1 applic TOPICAL TID 03/26/20 03/26/20 History Levothyroxine Sodium [Synthroid] 100 mcg PO DAILY@0600 03/26/20 03/26/20 History Loperamide [Imodium] 2 mg PO QID PRN 03/26/20 03/26/20 History Magnesium Hydroxide [Milk of 2,400 mg PO DAILY PRN 03/26/20 03/26/20 History Magnesia] Na Phos,M-B/Na Phos,Di-Ba [Fleet 133 ml RECTAL DAILY PRN 03/26/20 03/26/20 History Adult] Omeprazole 20 mg PO DAILY 03/26/20 03/26/20 History Vit C/E/Zn/Coppr/Lutein/Zeaxan 1 cap PO DAILY 03/26/20 03/26/20 History [Preservision Areds 2 Softgel] guaiFENesin [guaiFENesin Oral 200 mg PO Q4H PRN 03/26/20 03/26/20 History Solution] Allergies Allergy/AdvReac Type Severity Reaction Status Date / Time Calcium Channel Blocking Allergy Unknown Verified 03/26/20 13:27 Agent Dilt [Calcium Channel Blocking Agents-Kevin] iodine Allergy Rash/Hives Verified 03/26/20 13:27 levofloxacin [From Levaquin] Allergy Unknown Verified 03/26/20 13:27 codeine AdvReac Chest Pain Verified 03/26/20 13:27 Physical Examination Right upper extremity: No open lesions or sores are visualized, no significant areas of erythema or soft tissue swelling Range of motion was not assessed of the shoulder due to discomfort, she had tenderness with palpation of the proximal humerus No tenderness with palpation surrounding the elbow, she is able to extend and flex the elbow with minimal difficulty, she is also able to pronate and supinate the forearm with minimal difficulty Sensory exam to light touch throughout the extremity is intact, radial pulses 2+ Results - Labs Labs: Abnormal Lab Results - Last 24 Hours (Table) 03/27/20 Range/Units 06:00 Urine Appearance Cloudy H (Clear) Urine Protein Trace H (Negative) Urine Ketones Trace H (Negative) Ur Leukocyte Esterase Large H (Negative) Urine RBC 11 H (0-5) /hpf Urine WBC 117 H (0-5) /hpf Urine Bacteria Occasional H (None) /hpf Urine Mucus Rare H (None) /hpf - Diagnostic results Shoulder x-ray: report reviewed, image reviewed Elbow x-ray: report reviewed, image reviewed Hip x-ray: report reviewed, image reviewed Assessment and Plan Assessment: Right proximal humeral neck fracture Right elbow osteoarthritis, old right radial head fracture Status post fall from wheelchair Other medical comorbidities Plan: Imaging: Multiple x-rays were reviewed along with reports. X-rays of the elbow demonstrated significant osteoarthritic changes throughout the entire joint, evidence of an old radial head fracture. Images of the shoulder demonstrate a displaced right proximal humeral neck fracture. Shoulders remains intact. X- rays of the pelvis were reviewed, they demonstrate no acute osseous abnormalities Plan: I was able to discuss the case, including both physical exam findings and imaging studies in my attending Dr. Becerra. No surgical intervention recommended at this time. Recommend conservative management, this to include icing of the region, pain control and use of an arm sling. I will place an order for new arm sling with better padding. Other medical specialty recommendations Plan for follow-up in the outpatient setting in the next 10-14 days for x-ray and clinical evaluation Thank you for the consult, we'll be available for any further questions regarding the patient.
[2020-03-27] MEDS: ACETAMINOPHEN TAB 325 MG TAB PO PRN ×2 (16:08→21:22)
--- NOTE | 2020-03-27 19:27 | P.HPIM ---
History of Present Illness H&P Date: 03/27/20 Massiel Soni, is an 89-year-old female who presented to [facility] emergency room for evaluation after a fall that occurred at [facility]. Patient was sitting in her wheelchair and leaning forward when she fell out, landing on her right arm and head and face . Patient was evaluated in the emergency room, computed tomography scan of the head and neck were negative, x- ray revealed a right proximal humerus fracture. pelvic x-rays were negative along with elbow x-rays for any acute osseous abnormalities. Patient was admitted to the medical floor, orthopedic surgery consultation was requested Patient was evaluated on the medical floor she is alert confused in no apparent distress she is complaining of pain in her right arm and in the right upper quadrant of the abdomen, otherwise she denies any complaints there is no fever or chills no headache or dizziness no chest pain no nausea or vomiting no diarrhea no blood in the stools and no urinary symptoms. Past Medical History Past Medical History: COPD, Eye Disorder, GERD/Reflux, Hyperlipidemia, Hypertension, Rheumatoid Arthritis (RA), Thyroid Disorder, Vascular Disorder Additional Past Medical History / Comment(s): Irregular heart beat (pt does not know name of arrhythmia), thoracic aneurysm, R macular degeneration, large hiatal hernia, IBS, chronic abdominal pain, parathyroid tumor/hypothyroid, UTIs, incontinence of urine, essential tremors, bilateral carpal tunnel syndrome, past L rib fractures with small pneumothorax, gait dysfunction. History of Any Multi-Drug Resistant Organisms: None Reported Past Surgical History: Cholecystectomy, Hysterectomy, Joint Replacement Additional Past Surgical History / Comment(s): Total R knee arthroplasty, bilateral cataract removal/lens implants, EGD/colonoscopy/24 hour motility test Past Anesthesia/Blood Transfusion Reactions: No Reported Reaction Past Psychological History: Anxiety, Depression Additional Psychological History / Comment(s): Pt resides alone in a [place] apartment. She has help provided thru [employer]. She manages her own medications. She no longer drives, her nephew takes her to [employer]. Smoking Status: Former smoker Past Alcohol Use History: None Reported Additional Past Alcohol Use History / Comment(s): Pt smoked from 1943 until 89 Past Drug Use History: None Reported - Past Family History Mother Family Medical History: Hypertension Additional Family Medical History / Comment(s): passed from abdominal aneurysm Father Additional Family Medical History / Comment(s): parkinsons Brother(s) Additional Family Medical History / Comment(s): esophageal issues Sister(s) Additional Family Medical History / Comment(s): mobility issues Son(s) Family Medical History: No Reported History Medications and Allergies Home Medications Medication Instructions Recorded Confirmed Type Cholecalciferol [Vitamin D3 (25 1,000 unit PO DAILY 07/04/17 03/26/20 History Mcg = 1000 Iu)] Trimethoprim 100 mg PO DAILY 07/04/17 03/26/20 History Bisoprolol [Zebeta] 5 mg PO DAILY 11/01/18 03/26/20 History Enalapril [Vasotec] 5 mg PO DAILY 11/01/18 03/26/20 History Pravastatin Sodium [Pravachol] 20 mg PO HS 11/01/18 03/26/20 History Sertraline [Zoloft] 100 mg PO HS 11/01/18 03/26/20 History LORazepam [Ativan] 1 mg PO BID #6 tab 11/06/18 03/26/20 Rx ARIPiprazole [Abilify] 2 mg PO DAILY 03/26/20 03/26/20 History Acetaminophen [Tylenol 8 Hour] 650 mg PO Q4H PRN 03/26/20 03/26/20 History Albuterol Sulfate [Albuterol 1 - 2 puff INHALATION RT-Q6H PRN 03/26/20 03/26/20 History Sulfate Hfa] Bisacodyl [Dulcolax] 10 mg RECTAL DAILY PRN 03/26/20 03/26/20 History Caldesene Powder 1 applic TOPICAL TID 03/26/20 03/26/20 History Levothyroxine Sodium [Synthroid] 100 mcg PO DAILY@0600 03/26/20 03/26/20 History Loperamide [Imodium] 2 mg PO QID PRN 03/26/20 03/26/20 History Magnesium Hydroxide [Milk of 2,400 mg PO DAILY PRN 03/26/20 03/26/20 History Magnesia] Na Phos,M-B/Na Phos,Di-Ba [Fleet 133 ml RECTAL DAILY PRN 03/26/20 03/26/20 History Adult] Omeprazole 20 mg PO DAILY 03/26/20 03/26/20 History Vit C/E/Zn/Coppr/Lutein/Zeaxan 1 cap PO DAILY 03/26/20 03/26/20 History [Preservision Areds 2 Softgel] guaiFENesin [guaiFENesin Oral 200 mg PO Q4H PRN 03/26/20 03/26/20 History Solution] Allergies Allergy/AdvReac Type Severity Reaction Status Date / Time Calcium Channel Blocking Allergy Unknown Verified 03/26/20 13:27 Agent Dilt [Calcium Channel Blocking Agents-Kevin] iodine Allergy Rash/Hives Verified 03/26/20 13:27 levofloxacin [From Levaquin] Allergy Unknown Verified 03/26/20 13:27 codeine AdvReac Chest Pain Verified 03/26/20 13:27 Physical Exam Vitals: Vital Signs Temp Pulse Resp BP Pulse Ox 03/27/20 16:01 99.0 F 70 20 107/68 92 L 03/27/20 07:50 98.5 F 72 20 125/79 93 L 03/27/20 07:25 72 20 03/27/20 02:14 98.0 F 68 20 133/69 94 L 03/26/20 20:05 18 03/26/20 19:37 98.2 F 77 18 149/80 94 L Intake and Output 03/27/20 03/27/20 03/27/20 06:59 14:59 22:59 Intake Total 250 Output Total 50 Balance -50 250 Intake: Oral 250 Output: Urine 50 Other: Voiding Method Diaper Incontinent # Voids 1 In general patient is alert slightly confused in no apparent distress HEENT normocephalic, there are ecchymosis around the left eye Neck is supple no JVD no goiter Chest exam reveals a few scattered rhonchi bilaterally no wheezing Cardiac exam reveals regular heart sounds S1 and S2 no gallops no murmurs Abdomen is soft nontender no organomegaly with normal bowel sounds Extremity exam reveals no edema no cyanosis or clubbing Results Labs: Abnormal Lab Results - Last 24 Hours (Table) 03/27/20 Range/Units 06:00 Urine Appearance Cloudy H (Clear) Urine Protein Trace H (Negative) Urine Ketones Trace H (Negative) Ur Leukocyte Esterase Large H (Negative) Urine RBC 11 H (0-5) /hpf Urine WBC 117 H (0-5) /hpf Urine Bacteria Occasional H (None) /hpf Urine Mucus Rare H (None) /hpf Thrombosis Risk Factor Assmnt - Choose All That Apply Each Risk Factor Represents 2 Points: Patient confined to bed Each Risk Factor Represents 3 Points: Age 75 years or older Thrombosis Risk Factor Assessment Total Risk Factor Score: 5 Thrombosis Risk Factor Assessment Level: High Risk Assessment and Plan Plan: 1. Fall was approximately humerus fracture on the right humerus, and facial trauma 2. Underlying history of hypertension 3. Underlying history of hyperlipidemia 4. Underlying history of COPD 5. Underlying history of rheumatoid arthritis 6. Underlying history of hypothyroidism 7. Right upper quadrant abdominal pain Will check ultrasound At this time medication reviewed and reordered Orthopedic consultation requested Will follow during this hospitalization for medical management
[2020-03-28] MEDS: LEVOTHYROXINE 100 MCG TAB PO SCH (05:19)
[2020-03-28] MEDS: LORazepam 1 MG TAB PO SCH (07:38)
[2020-03-28] MEDS: TRIMETHOPRIM 100 MG TAB PO SCH (07:39)
[2020-03-28] MEDS: VIT A,C & E-LUTEIN-MINERALS 1 EACH TAB PO SCH (07:39)
[2020-03-28] MEDS: CHOLECALCIFEROL 1,000 UNIT TAB PO SCH (07:39)
[2020-03-28] MEDS: PANTOPRAZOLE 40 MG TABLET PO SCH (07:39)
[2020-03-28] MEDS: ARIPiprazole 2 MG TAB PO SCH (07:39)
[2020-03-28] MEDS: BISOPROLOL 5 MG TAB PO SCH ×2 (07:39→07:45)
[2020-03-28] MEDS: LISINOPRIL 10 MG TAB PO SCH ×2 (07:39→07:46)
[2020-03-28] MEDS: ZINC OXIDE-CORN STARCH 142 GM POWDER TOPICAL SCH (07:40)
[2020-03-28 08:08] LABS: Anisocytosis Slight; Basophils % (A) 1 %; Eosinophils # (A) 0.1 k/uL (0-0.7); Eosinophils % (A) 1 %; HCT 38.6 % (34.0-46.0); HGB 12.5 gm/dL (11.4-16.0); Lymphocytes # (A) 1.2 k/uL (1.0-4.8); Lymphocytes % (A) 19 %; MCH 29.7 pg (25.0-35.0); MCHC 32.5 g/dL (31.0-37.0); MCV 91.3 fL (80.0-100.0); Mean Platelet Volume 7.8; Monocytes # (A) 0.3 k/uL (0-1.0); Monocytes % (A) 4 %; Neutrophils # (A) 4.5 k/uL (1.3-7.7); Neutrophils % (A) 73 %; Platelet Count 159 k/uL (150-450); RBC 4.22 m/uL (3.80-5.40); RDW 17.1 % (11.5-15.5); WBC 6.2 k/uL (3.8-10.6)
[2020-03-28 08:27] LABS: Albumin 3.7 g/dL (3.5-5.0); Calcium 9.9 mg/dL (8.4-10.2); Potassium 4.6 mmol/L (3.5-5.1); Total Protein 6.3 g/dL (6.3-8.2)
[2020-03-28 09:24] VITALS: PULSE 57
--- NOTE | 2020-03-28 10:48 | P.PN ---
Progress Note - Text Progress Note Date: 03/28/20 Diagnosis: Right proximal humerus fracture Plan: Discussed with nursing to utilize the better fitting sling was ordered, she will be fitted for this today. She'll continue limited use of the right upper extremity. Plan for follow-up in the outpatient setting in [address] Becerra. Please contact [facility] with any questions
--- NOTE | 2020-03-28 14:32 | US ---
EXAMINATION TYPE: US abdomen complete DATE OF EXAM: 03/28/2020 COMPARISON: CT CLINICAL HISTORY: abdominal pain. Patient stated she fell and has generalized pain; gallbladder remov ed EXAM MEASUREMENTS: Liver Length: 12.7 cm Gallbladder Wall: surgically removed CBD: 0.6 cm Spleen: 9.0 cm Right Kidney: 11.1 x 5.7 x 3.8 cm Left Kidney: 9.4 x 4.3 x 4.5 cm US exam is technically limited by overlying bowel gas and patient immobility with US tech scanning pa tient at bedside. Pancreas: Obscured by bowel gas Liver: primarily obscured by overlying bowel gas Gallbladder: surgically absent Evidence for sonographic Gates's sign: no CBD: wnl Spleen: wnl Right Kidney: limitedly seen as is obscured by overlying bowel gas Left Kidney: wnl Upper IVC: wnl Abd Aorta: small aneurysm noted mid lumen at 3.1cm Transverse; hyperechoic intimal wall thickening i s noted throughout visualized portions. IMPRESSION: Mild infrarenal abdominal aortic aneurysm.
[2020-03-28] MEDS: ACETAMINOPHEN TAB 325 MG TAB PO PRN (14:41)
--- NOTE | 2020-03-28 14:50 | P.DS ---
Providers Date of admission: 03/26/20 16:05 Expected date of discharge: 03/28/20 Attending physician: Howie Negrete Consults: 03/26/20 17:39 Consult Physician Routine Consulting Provider: Mitchell Estes Consult Reason/Comments: proximal right humeral fracture Do you want consulting provider notified?: Yes Placement Type Exists?: Yes Primary care physician: Howie Caden [place] [facility] Course: Diagnosis on discharge: 1. Fall was approximately humerus fracture on the right humerus, and facial trauma 2. Underlying history of hypertension 3. Underlying history of hyperlipidemia 4. Underlying history of COPD 5. Underlying history of rheumatoid arthritis 6. Underlying history of hypothyroidism 7. Right upper quadrant abdominal pain Will check ultrasound 8. Evidence of urinary tract infection, will start Ceftin 500 mg twice daily for 7 days Hospital course: Massiel Soni, is an 89-year-old female who presented to [facility] emergency room for evaluation after a fall that occurred at [facility]. Patient was sitting in her wheelchair and leaning forward when she fell out, landing on her right arm and head and face . Patient was evaluated in the emergency room, computed tomography scan of the head and neck were negative, x- ray revealed a right proximal humerus fracture. pelvic x-rays were negative along with elbow x-rays for any acute osseous abnormalities. Patient was admitted to the medical floor, orthopedic surgery consultation was requested Patient was evaluated on the medical floor she is alert confused in no apparent distress she is complaining of pain in her right arm and in the right upper quadrant of the abdomen, otherwise she denies any complaints there is no fever or chills no headache or dizziness no chest pain no nausea or vomiting no diarrhea no blood in the stools and no urinary symptoms. On 03/28/2020 patient was seen and examined on the medical floor she is alert and oriented 3 in no apparent distress she was complaining of abdominal pain, ultrasound of the abdomen was done and did not reveal any significant abnormality, patient was evaluated by orthopedic surgery and was cleared for discharge with the use of a basic arm sling , patient has evidence of urinary tract infection and will be started on Ceftin 500 mg twice daily for 7 days, patient had some abdominal pain yesterday and this morning abdomen ultrasound was done and did not reveal any significant abnormality, patient feels better and stated that she is ready to be discharged to the longterm, will follow her at [facility] for further evaluation and treatment. Patient Condition at Discharge: Stable Plan - Discharge Summary Discharge Rx Participant: No New Discharge Prescriptions: Continue Trimethoprim 100 mg PO DAILY Cholecalciferol [Vitamin D3 (25 Mcg = 1000 Iu)] 1,000 unit PO DAILY Pravastatin Sodium [Pravachol] 20 mg PO HS Bisoprolol [Zebeta] 5 mg PO DAILY Enalapril [Vasotec] 5 mg PO DAILY Sertraline [Zoloft] 100 mg PO HS LORazepam [Ativan] 1 mg PO BID #6 tab Albuterol Sulfate [Albuterol Sulfate Hfa] 1 - 2 puff INHALATION RT-Q6H PRN PRN Reason: Shortness Of Breath Magnesium Hydroxide [Milk of Magnesia] 2,400 mg PO DAILY PRN PRN Reason: Constipation Loperamide [Imodium] 2 mg PO QID PRN PRN Reason: Diarrhea guaiFENesin [guaiFENesin Oral Solution] 200 mg PO Q4H PRN PRN Reason: Cough Na Phos,M-B/Na Phos,Di-Ba [Fleet Adult] 133 ml RECTAL DAILY PRN PRN Reason: Constipation Bisacodyl [Dulcolax] 10 mg RECTAL DAILY PRN PRN Reason: Constipation Acetaminophen [Tylenol 8 Hour] 650 mg PO Q4H PRN PRN Reason: general discomfort Levothyroxine Sodium [Synthroid] 100 mcg PO DAILY@0600 Vit C/E/Zn/Coppr/Lutein/Zeaxan [Preservision Areds 2 Softgel] 1 cap PO DAILY Omeprazole 20 mg PO DAILY ARIPiprazole [Abilify] 2 mg PO DAILY Caldesene Powder 1 applic TOPICAL TID Discharge Medication List Cholecalciferol [Vitamin D3 (25 Mcg = 1000 Iu)] 1,000 unit PO DAILY 07/04/17 [History] Trimethoprim 100 mg PO DAILY 07/04/17 [History] Bisoprolol [Zebeta] 5 mg PO DAILY 11/01/18 [History] Enalapril [Vasotec] 5 mg PO DAILY 11/01/18 [History] Pravastatin Sodium [Pravachol] 20 mg PO HS 11/01/18 [History] Sertraline [Zoloft] 100 mg PO HS 11/01/18 [History] LORazepam [Ativan] 1 mg PO BID #6 tab 11/06/18 [Rx] ARIPiprazole [Abilify] 2 mg PO DAILY 03/26/20 [History] Acetaminophen [Tylenol 8 Hour] 650 mg PO Q4H PRN 03/26/20 [History] Albuterol Sulfate [Albuterol Sulfate Hfa] 1 - 2 puff INHALATION RT-Q6H PRN 03/26/20 [History] Bisacodyl [Dulcolax] 10 mg RECTAL DAILY PRN 03/26/20 [History] Caldesene Powder 1 applic TOPICAL TID 03/26/20 [History] Levothyroxine Sodium [Synthroid] 100 mcg PO DAILY@0600 03/26/20 [History] Loperamide [Imodium] 2 mg PO QID PRN 03/26/20 [History] Magnesium Hydroxide [Milk of Magnesia] 2,400 mg PO DAILY PRN 03/26/20 [History] Na Phos,M-B/Na Phos,Di-Ba [Fleet Adult] 133 ml RECTAL DAILY PRN 03/26/20 [History] Omeprazole 20 mg PO DAILY 03/26/20 [History] Vit C/E/Zn/Coppr/Lutein/Zeaxan [Preservision Areds 2 Softgel] 1 cap PO DAILY 03/26/20 [History] guaiFENesin [guaiFENesin Oral Solution] 200 mg PO Q4H PRN 03/26/20 [History] Follow up Appointment(s)/Referral(s): David Becerra DO [Doctor of Osteopathic Medicine] - 2 Weeks [facility], [NON-STAFF] - As Needed Howie Negrete MD [Primary Care Provider] - 1-2 days Activity/Diet/Wound Care/Special Instructions: Orthopedic discharge instructions: 1. Utilize arm sling 2. Ice the shoulder often 3. Avoid any use of the right upper extremity at this time 4. Plan for [facility]-up at [facility] in 2 weeks
[2020-03-28 15:24] VITALS: BP 126/80; RESP 16; TEMP 98
== END 2020-03-28 16:14 | disposition home or self-care (01) ==
LOC: EC 12:22 → INTOOBSV 16:05 → 4SSUR 16:05
PROVIDERS: ADMIT Internal Medicine; ATTEND Internal Medicine
DX: S42.291A Other displaced fracture of upper end of right humerus, initial encounter for closed fracture (principal); S00.83XA Contusion of other part of head, initial encounter; I10 Essential (primary) hypertension; E78.5 Hyperlipidemia, unspecified; J44.9 Chronic obstructive pulmonary disease, unspecified; M06.9 Rheumatoid arthritis, unspecified; E03.9 Hypothyroidism, unspecified; R10.11 Right upper quadrant pain; N39.0 Urinary tract infection, site not specified; R41.0 Disorientation, unspecified; H35.30 Unspecified macular degeneration; K21.9 Gastro-esophageal reflux disease without esophagitis; I49.9 Cardiac arrhythmia, unspecified; I71.2 Thoracic aortic aneurysm, without rupture; K44.9 Diaphragmatic hernia without obstruction or gangrene; K58.9 Irritable bowel syndrome, unspecified; E21.4 Other specified disorders of parathyroid gland; G56.03 Carpal tunnel syndrome, bilateral upper limbs; F41.9 Anxiety disorder, unspecified; F32.9 Major depressive disorder, single episode, unspecified; M19.021 Primary osteoarthritis, right elbow; Z03.818 Encounter for observation for suspected exposure to other biological agents ruled out; Z79.899 Other long term (current) drug therapy; Z79.890 Hormone replacement therapy; Z88.8 Allergy status to other drugs, medicaments and biological substances; Z91.048 Other nonmedicinal substance allergy status; Z88.1 Allergy status to other antibiotic agents; Z88.5 Allergy status to narcotic agent; Z86.79 Personal history of other diseases of the circulatory system; Z87.440 Personal history of urinary (tract) infections; Z87.81 Personal history of (healed) traumatic fracture; Z87.09 Personal history of other diseases of the respiratory system; Z90.49 Acquired absence of other specified parts of digestive tract; Z90.710 Acquired absence of both cervix and uterus; Z96.651 Presence of right artificial knee joint; Z98.41 Cataract extraction status, right eye; Z98.42 Cataract extraction status, left eye; Z96.1 Presence of intraocular lens; Z98.890 Other specified postprocedural states; Z87.891 Personal history of nicotine dependence; Z82.49 Family history of ischemic heart disease and other diseases of the circulatory system; Z81.8 Family history of other mental and behavioral disorders; Z83.79 Family history of other diseases of the digestive system; Z84.89 Family history of other specified conditions; W05.0XXA Fall from non-moving wheelchair, initial encounter; Y93.89 Activity, other specified; Y92.129 Unspecified place in nursing home as the place of occurrence of the external cause
CPT/HCPCS: 96375; 96376 ×2; 96374; 99285; 97530; 97162; 97535; 97166; 80053; 85025; 81001; 72170; 73030; 73080; 71045; 76700; 72125; 70450; G0378 ×2; U0003; J2270

== ENCOUNTER 2020-04-30 10:55 | Emergency (ER) | payer MEDICARE, OTHER ==
[2020-04-30 11:08] VITALS: RESP 18
--- NOTE | 2020-04-30 11:14 | ED ---
Fall HPI - General Chief Complaint: Fall Stated Complaint: Fall Time Seen by Provider: 04/30/20 10:57 Source: patient, EMS, RN notes reviewed, old records reviewed Mode of arrival: EMS - History of Present Illness Initial Comments: Patient is a 89-year-old female [facility] for concern for falling out of her wheelchair striking the front of her head. Patient has a large hematoma. She is not on blood thinners. They deny any loss of consciousness. They report the Patient is a and O 2 which is her baseline. Patient has had no nausea or vomiting. She also has a recent history of right humerus fracture. She states is has was recently treated, Placed in slings. Patient at this time has no other complaints is alert and oriented at baseline. - Related Data Home Medications Medication Instructions Recorded Confirmed Cholecalciferol [Vitamin D3 (25 1,000 unit PO DAILY@1700 07/04/17 04/30/20 Mcg = 1000 Iu)] Trimethoprim 100 mg PO DAILY 07/04/17 04/30/20 Bisoprolol [Zebeta] 5 mg PO DAILY 11/01/18 04/30/20 Enalapril [Vasotec] 5 mg PO DAILY 11/01/18 04/30/20 Pravastatin Sodium [Pravachol] 20 mg PO HS 11/01/18 04/30/20 Sertraline [Zoloft] 100 mg PO HS 11/01/18 04/30/20 ARIPiprazole [Abilify] 2 mg PO DAILY 03/26/20 04/30/20 Acetaminophen [Tylenol 8 Hour] 650 mg PO Q4H PRN 03/26/20 04/30/20 Albuterol Sulfate [Albuterol 1 - 2 puff INHALATION RT-Q6H PRN 03/26/20 04/30/20 Sulfate Hfa] Caldesene Powder 1 applic TOPICAL TID 03/26/20 04/30/20 Loperamide [Imodium] 2 mg PO QID PRN 03/26/20 04/30/20 Na Phos,M-B/Na Phos,Di-Ba [Fleet 133 ml RECTAL DAILY PRN 03/26/20 04/30/20 Adult] Omeprazole 20 mg PO DAILY 03/26/20 04/30/20 Vit C/E/Zn/Coppr/Lutein/Zeaxan 1 cap PO DAILY 03/26/20 04/30/20 [Preservision Areds 2 Softgel] bisacodyL [Dulcolax] 10 mg RECTAL DAILY PRN 03/26/20 04/30/20 guaiFENesin [guaiFENesin Oral 200 mg PO Q4H PRN 03/26/20 04/30/20 Solution] Levothyroxine Sodium [Synthroid] 112 mcg PO DAILY@0600 04/30/20 04/30/20 Magnesium Hydroxide [Milk of 7,200 mg PO DAILY PRN 04/30/20 04/30/20 Magnesia Concentrate] Previous Rx's Medication Instructions Recorded LORazepam [Ativan] 1 mg PO BID #6 tab 11/06/18 Allergies Allergy/AdvReac Type Severity Reaction Status Date / Time Calcium Channel Blocking Allergy Unknown Verified 04/30/20 11:32 Agent Dilt [Calcium Channel Blocking Agents-Kevin] iodine Allergy Rash/Hives Verified 04/30/20 11:32 levofloxacin [From Levaquin] Allergy Unknown Verified 04/30/20 11:32 codeine AdvReac Chest Pain Verified 04/30/20 11:32 Review of Systems ROS Statement: Those systems with pertinent positive or pertinent negative responses have been documented in the HPI. ROS Other: All systems not noted in ROS Statement are negative. Past Medical History Past Medical History: COPD, Eye Disorder, GERD/Reflux, Hyperlipidemia, Hypertension, Rheumatoid Arthritis (RA), Thyroid Disorder, Vascular Disorder Additional Past Medical History / Comment(s): Irregular heart beat (pt does not know name of arrhythmia), thoracic aneurysm, R macular degeneration, large hiatal hernia, IBS, chronic abdominal pain, parathyroid tumor/hypothyroid, UTIs, incontinence of urine, essential tremors, bilateral carpal tunnel syndrome, past L rib fractures with small pneumothorax, gait dysfunction. History of Any Multi-Drug Resistant Organisms: None Reported Past Surgical History: Cholecystectomy, Hysterectomy, Joint Replacement Additional Past Surgical History / Comment(s): Total R knee arthroplasty, bilateral cataract removal/lens implants, EGD/colonoscopy/24 hour motility test Past Anesthesia/Blood Transfusion Reactions: No Reported Reaction Past Psychological History: Anxiety, Depression Smoking Status: Smoker, current status unknown Past Alcohol Use History: None Reported Past Drug Use History: None Reported - Past Family History Mother Family Medical History: Hypertension Additional Family Medical History / Comment(s): passed from abdominal aneurysm Father Additional Family Medical History / Comment(s): parkinsons Brother(s) Additional Family Medical History / Comment(s): esophageal issues Sister(s) Additional Family Medical History / Comment(s): mobility issues Son(s) Family Medical History: No Reported History General Exam - General Exam Comments Initial Comments: 81-year-old female. Alert and oriented 2. Baseline. No acute distress. Limitations: altered mental status General appearance: alert, in no apparent distress Head exam: Present: atraumatic, normocephalic. Absent: normal inspection (Patient has large frontal hematoma) Eye exam: Present: normal appearance, PERRL, EOMI. Absent: scleral icterus, conjunctival injection, periorbital swelling ENT exam: Present: normal exam, mucous membranes moist Neck exam: Present: normal inspection. Absent: tenderness, meningismus, lymphadenopathy Respiratory exam: Present: normal lung sounds bilaterally. Absent: respiratory distress, wheezes, rales, rhonchi, stridor Cardiovascular Exam: Present: regular rate, normal rhythm, normal heart sounds. Absent: systolic murmur, diastolic murmur, rubs, gallop, clicks GI/Abdominal exam: Present: soft, normal bowel sounds. Absent: distended, tenderness, guarding, rebound, rigid Extremities exam: Present: normal inspection, full ROM, normal capillary refill. Absent: tenderness, pedal edema, joint swelling, calf tenderness Right Upper Arm exam: Present: normal inspection, full ROM Elbow exam: Present: normal inspection, full ROM, erythema (Some erythema over the right elbow. Full range motion. No point tenderness.) Forearm Wrist exam: Present: normal inspection, full ROM Hand Wrist exam: Present: normal inspection, full ROM Neuro motor exam: Present: wrist extension intact, thumb opposition intact, thumb IP flexion intact, thumb adduction intact, fingers 2-5 abduction intact Vascular: Present: normal capillary refill Back exam: Present: normal inspection Neurological exam: Present: alert, oriented X3, CN II-XII intact Psychiatric exam: Present: normal affect, normal mood Skin exam: Present: warm, dry, intact, normal color. Absent: rash Course Vital Signs 04/30/20 10:58 Temperature 98.2 F Pulse Rate 74 Respiratory 18 Rate Blood Pressure 121/64 O2 Sat by Pulse 95 Oximetry Medical Decision Making - Medical Decision Making This patient's a 89-year-old female from extended nursing facility presents today after falling from her wheelchair. She is fully clothed bent forward and fell. She has a significant hematoma over the frontal scalp. CT of the brain and C-spine are negative for acute process. Facial bones show no fractures. She has a known history of a right humerus fracture. Upon reviewing Dr. henson notes. There is no surgical plan at that time. She was discharged with a sling at rehab facility. She denies any significant pain or point tenderness. She states that occasionally her right elbow hurt. Likely inflammatory arthritis from old radial head fracture that was seen on previous exams. Patient at this time will be discharged back to extended care facility. Discussed placing the swelling and to follow-up with primary care doctor in orthopedics for the healing humerus fracture - Radiology Data Radiology results: report reviewed CT of the brain and C-spine shows no acute fracture dislocation evident cervical spine. No acute intracranial hemorrhage mass effect or midline shift is seen. No acute facial bone fracture. Humerus x-ray shows demonstrate a 2 part proximal humeral fracture characterized by impacted approximately marginated and angulated surgical neck fracture. Overall alignment is unchanged from 03/26/2020. Elbow shows advanced degenerative changes. Underlying joint effusion could re-reactive to arthritis. Osteopenia bony overlap limits exam. Subtle lucency along the radial aspect of the radial head on AP view could represent a subtle nondisplaced fracture. Correlate for pinpoint tenderness here. Disposition Clinical Impression: Fall, Scalp hematoma, Arthritis of right elbow, Fracture of humerus with routine healing Disposition: HOME SELF-CARE Condition: Good Instructions (If sedation given, give patient instructions): Hematoma (ED) Additional Instructions: Please follow up with orthopedic as previously scheduled. Ice the hematoma. Please return to the emergency room if your symptoms increase or worsen or for any other concerns. Is patient prescribed a controlled substance at d/c from ED?: No Referrals: Howie Negrete MD [Primary Care Provider] - 1-2 days Time of Disposition: 13:13
--- NOTE | 2020-04-30 11:48 | XR ---
EXAMINATION TYPE: XR humerus 2 views RT, XR elbow complete 3 views RT DATE OF EXAM: 04/30/2020 COMPARISON: Shoulder 04/15/2020 and elbow 03/26/2020 HISTORY: 81 year-old female fall from wheelchair, pain, history of fracture. FINDINGS: HUMERUS: There is redemonstration of the 2 part proximal humeral fracture characterized by impacted, proximall y migrated, angulated surgical neck component. Osteopenia and bony overlap makes assessment for heali ng change compared to 04/07/2020 difficult. The glenohumeral joint itself appears intact. ELBOW: Advanced degenerative changes at the radiocapitellar and ulnotrochlear joints with bony remodeling, m arginal spurring, and loose bodies. Underlying elbow joint effusion is present with elevation of both the anterior and posterior fat pads of the elbow. Subtle lucency along the radial aspect of the radi al head on the AP view. IMPRESSION: 1. Humerus: Redemonstration of a 2 part proximal humeral fracture characterized by an impacted, proxi reba migrated, and angulated surgical neck fracture. Overall alignment is unchanged from 03/26/2020. 2. Elbow: Advanced degenerative changes. An underlying joint effusion could be reactive to the arthri tis. Osteopenia and bony overlap limits the exam. Subtle lucency along the radial aspect of the radia l head on the AP view could represent a subtle nondisplaced fracture. Correlate for pinpoint tenderne ss here.
--- NOTE | 2020-04-30 11:58 | CT ---
EXAMINATION TYPE: CT brain cspine wo con, CT facial bones wo con DATE OF EXAM: 04/30/2020 COMPARISON: Prior exam 03/26/2020 HISTORY: Fall with frontal injury. CT DLP: 1038.4 mGycm Automated exposure control for dose reduction was used. TECHNIQUE: CT scan of the head and cervical spine, facial bones are performed without contrast. FINDINGS: There is no acute intracranial hemorrhage, mass effect, or midline shift identified. The ventricles and sulci are within normal limits in size. Cortical atrophy is noted. Periventricular wh ite matter shows patchy low attenuation as on prior exam. Frontal scalp cephalohematoma is present, s mall punctate metallic foreign bodies or calcifications present within the skin are noted similar to prior exam. The globes are intact and the visualized sinuses are clear. Cervical spine is visualized in its entirety from C1 through upper thoracic levels and demonstrates s table alignment without evidence of acute fracture or dislocation. Prevertebral soft tissue appears within normal limits. The C1-C2 articulation is showing some degenerative change is multilevel spond ylosis, loss of disc height at intervertebral levels, multilevel facet arthropathy and foraminal encr oachment similar to prior exam. Possible descending aorta is ectatic at 3.1 cm. Facial bones: There is no evident fracture or dislocation. Frontal scalp cephalohematoma is present. Mild inflammatory change present in the mastoid air cells on the left. The orbits are intact. Ostiome atal units are patent. Adwoa bullosa present bilaterally. IMPRESSION: 1. There is no acute fracture or dislocation evident in the cervical spine. 2. No acute intracranial hemorrhage, mass effect, or midline shift is seen. 3. No acute facial bone fracture.
[2020-04-30 16:22] VITALS: BP 129/97; PULSE 78; TEMP 98.3
== END 2020-04-30 13:52 | disposition home or self-care (01) ==
LOC: EC 10:55
DX: S00.03XA Contusion of scalp, initial encounter (principal); M19.021 Primary osteoarthritis, right elbow; S42.211D Unspecified displaced fracture of surgical neck of right humerus, subsequent encounter for fracture with routine healing; J44.9 Chronic obstructive pulmonary disease, unspecified; K21.9 Gastro-esophageal reflux disease without esophagitis; I10 Essential (primary) hypertension; E78.5 Hyperlipidemia, unspecified; E03.9 Hypothyroidism, unspecified; F41.9 Anxiety disorder, unspecified; F32.9 Major depressive disorder, single episode, unspecified; Z79.899 Other long term (current) drug therapy; Z79.890 Hormone replacement therapy; Z88.8 Allergy status to other drugs, medicaments and biological substances; Z91.040 Latex allergy status; Z88.1 Allergy status to other antibiotic agents; Z88.5 Allergy status to narcotic agent; Z96.651 Presence of right artificial knee joint; W05.0XXA Fall from non-moving wheelchair, initial encounter; Y92.129 Unspecified place in nursing home as the place of occurrence of the external cause
CPT/HCPCS: 70450; 70486; 72125; 99284

== ENCOUNTER 2020-05-17 05:40 | Emergency (ER) | payer MEDICARE, OTHER ==
[2020-05-17 05:46] VITALS: RESP 18; TEMP 98
--- NOTE | 2020-05-17 06:20 | ED ---
Fall HPI - General Chief Complaint: Fall Stated Complaint: Fall Time Seen by Provider: 05/17/20 05:58 Source: patient, EMS Mode of arrival: EMS Limitations: no limitations - History of Present Illness Initial Comments: This is an 89-year-old female presents emergency Department from long-term chief complaint of a unwitnessed fall. Staff noticed that she had some new bruising to her face. Patient's had multiple falls and has been evaluated for this. Patient complains primarily of right leg pain and pain over her ribs on the left side. She denies any shortness of breath. She does not recall how she fell. Patient is not on any anticoagulants. Patient is Johnnie neck pain, dizziness, blurred vision. - Related Data Home Medications Medication Instructions Recorded Confirmed Cholecalciferol [Vitamin D3 (25 1,000 unit PO DAILY@1700 07/04/17 04/30/20 Mcg = 1000 Iu)] Trimethoprim 100 mg PO DAILY 07/04/17 04/30/20 Bisoprolol [Zebeta] 5 mg PO DAILY 11/01/18 04/30/20 Enalapril [Vasotec] 5 mg PO DAILY 11/01/18 04/30/20 Pravastatin Sodium [Pravachol] 20 mg PO HS 11/01/18 04/30/20 Sertraline [Zoloft] 100 mg PO HS 11/01/18 04/30/20 ARIPiprazole [Abilify] 2 mg PO DAILY 03/26/20 04/30/20 Acetaminophen [Tylenol 8 Hour] 650 mg PO Q4H PRN 03/26/20 04/30/20 Albuterol Sulfate [Albuterol 1 - 2 puff INHALATION RT-Q6H PRN 03/26/20 04/30/20 Sulfate Hfa] Caldesene Powder 1 applic TOPICAL TID 03/26/20 04/30/20 Loperamide [Imodium] 2 mg PO QID PRN 03/26/20 04/30/20 Na Phos,M-B/Na Phos,Di-Ba [Fleet 133 ml RECTAL DAILY PRN 03/26/20 04/30/20 Adult] Omeprazole 20 mg PO DAILY 03/26/20 04/30/20 Vit C/E/Zn/Coppr/Lutein/Zeaxan 1 cap PO DAILY 03/26/20 04/30/20 [Preservision Areds 2 Softgel] bisacodyL [Dulcolax] 10 mg RECTAL DAILY PRN 03/26/20 04/30/20 guaiFENesin [guaiFENesin Oral 200 mg PO Q4H PRN 03/26/20 04/30/20 Solution] Levothyroxine Sodium [Synthroid] 112 mcg PO DAILY@0600 04/30/20 04/30/20 Magnesium Hydroxide [Milk of 7,200 mg PO DAILY PRN 04/30/20 04/30/20 Magnesia Concentrate] Previous Rx's Medication Instructions Recorded LORazepam [Ativan] 1 mg PO BID #6 tab 11/06/18 Allergies Allergy/AdvReac Type Severity Reaction Status Date / Time Calcium Channel Blocking Allergy Unknown Verified 05/17/20 05:46 Agent Dilt [Calcium Channel Blocking Agents-Kevin] iodine Allergy Rash/Hives Verified 05/17/20 05:46 levofloxacin [From Levaquin] Allergy Unknown Verified 05/17/20 05:46 codeine AdvReac Chest Pain Verified 05/17/20 05:46 Review of Systems ROS Statement: Those systems with pertinent positive or pertinent negative responses have been documented in the HPI. ROS Other: All systems not noted in ROS Statement are negative. Past Medical History Past Medical History: COPD, Eye Disorder, GERD/Reflux, Hyperlipidemia, Hypertension, Rheumatoid Arthritis (RA), Thyroid Disorder, Vascular Disorder Additional Past Medical History / Comment(s): Irregular heart beat (pt does not know name of arrhythmia), thoracic aneurysm, R macular degeneration, large hiatal hernia, IBS, chronic abdominal pain, parathyroid tumor/hypothyroid, UTIs, incontinence of urine, essential tremors, bilateral carpal tunnel syndrome, past L rib fractures with small pneumothorax, gait dysfunction. History of Any Multi-Drug Resistant Organisms: None Reported Past Surgical History: Cholecystectomy, Hysterectomy, Joint Replacement Additional Past Surgical History / Comment(s): Total R knee arthroplasty, bilateral cataract removal/lens implants, EGD/colonoscopy/24 hour motility test Past Anesthesia/Blood Transfusion Reactions: No Reported Reaction Past Psychological History: Anxiety, Depression Smoking Status: Smoker, current status unknown Past Alcohol Use History: None Reported Past Drug Use History: None Reported - Past Family History Mother Family Medical History: Hypertension Additional Family Medical History / Comment(s): passed from abdominal aneurysm Father Additional Family Medical History / Comment(s): parkinsons Brother(s) Additional Family Medical History / Comment(s): esophageal issues Sister(s) Additional Family Medical History / Comment(s): mobility issues Son(s) Family Medical History: No Reported History General Exam Limitations: no limitations, physical limitation General appearance: alert, in no apparent distress Head exam: Present: atraumatic, normocephalic, normal inspection Eye exam: Present: normal appearance, PERRL, EOMI. Absent: scleral icterus, conjunctival injection, periorbital swelling ENT exam: Present: normal oropharynx, mucous membranes moist. Absent: normal exam (Facial ecchymosis noted) Neck exam: Present: normal inspection, full ROM. Absent: tenderness, meningismus, lymphadenopathy Respiratory exam: Present: normal lung sounds bilaterally, chest wall tenderness (Mild left-sided). Absent: respiratory distress, wheezes, rales, rhonchi, stridor Cardiovascular Exam: Present: regular rate, normal rhythm, normal heart sounds. Absent: systolic murmur, diastolic murmur, rubs, gallop, clicks Extremities exam: Present: other (There is no obvious deformities to the lower extremity patient reports mild tenderness palpation to right thigh and lower leg there is an old scar noted neurovascular intact patient's full range of motion lower extremities, upper extremity exam within normal limits other then arthritic changes noted) Back exam: Present: full ROM. Absent: tenderness, paraspinal tenderness, vertebral tenderness Neurological exam: Present: alert, CN II-XII intact Skin exam: Present: warm, dry, intact, normal color. Absent: rash Course Vital Signs 05/17/20 05/17/20 05:42 06:56 Temperature 98.0 F Pulse Rate 70 71 Respiratory 18 18 Rate Blood Pressure 151/59 106/55 O2 Sat by Pulse 94 L 95 Oximetry Medical Decision Making - Medical Decision Making CT x-rays were reviewed no acute findings. Patient will be discharged in stable condition patient is at her normal baseline. Patient discharged back to long-term. Disposition Clinical Impression: Head injury, Fall, Right leg pain Disposition: HOME SELF-CARE Condition: Stable Instructions (If sedation given, give patient instructions): Fall Prevention for Older Adults (ED) Additional Instructions: Please return to the Emergency Department if symptoms worsen or any other concerns. Is patient prescribed a controlled substance at d/c from ED?: No Referrals: Howie Negrete MD [Primary Care Provider] - 1-2 days Time of Disposition: 07:03
--- NOTE | 2020-05-17 06:40 | XR ---
EXAMINATION TYPE: XR chest 1V DATE OF EXAM: 05/17/2020 COMPARISON: 03/26/2020 HISTORY: Fall. Trauma. Pain. TECHNIQUE: FINDINGS: Thoracic aorta is atheromatous. Heart is enlarged. There is no gross heart failure. There i s slight coarsening of interstitial markings. There is no pleural effusion. There is moderate arthrit ic change in the shoulder joints. IMPRESSION: No acute lung disease. Mild pulmonary fibrosis. Atheromatous aorta.
--- NOTE | 2020-05-17 06:46 | XR ---
EXAMINATION TYPE: XR tibia fibula RT DATE OF EXAM: 05/17/2020 COMPARISON: NONE HISTORY: Leg pain after fall TECHNIQUE: 4 views FINDINGS: There is a right knee prosthesis. Components appear in anatomic position. There is no sign of knee joint effusion. There is plantar calcaneal spurring. There is osteopenia at the ankle. There is mild vascular calcification. IMPRESSION: No acute abnormality of the right tibia and fibula.
--- NOTE | 2020-05-17 06:48 | XR ---
EXAMINATION TYPE: XR femur RT DATE OF EXAM: 05/17/2020 COMPARISON: NONE HISTORY: Pain. TECHNIQUE: 4 views FINDINGS: There is right knee prosthesis. Hip joint appears intact. I see no fracture nor dislocation . There is some osteopenia. IMPRESSION: No acute abnormality of the right femur.
[2020-05-17 06:57] VITALS: BP 106/55; PULSE 71
--- NOTE | 2020-05-17 06:58 | CT ---
EXAMINATION TYPE: CT brain shaiine wo con DATE OF EXAM: 05/17/2020 COMPARISON: 04/30/2020 HISTORY: Fall. Pain. CT DLP: 1207.1 mGycm Automated exposure control for dose reduction was used. There is diffuse cerebral cortical atrophy. There is hypodensity in the periventricular white matter. There is left frontal scalp hematoma. Calvarium is intact. There is no mass effect nor midline shift . There is no sign of intracranial hemorrhage. Cervical vertebra show fairly normal alignment. There is some mild C7-T1 spondylolisthesis. Facet noemi nts are intact. I see no evidence of a fracture. Skull base is intact. I see no bony destructive proc ess. IMPRESSION: Cerebral atrophy and chronic small vessel ischemia. No acute intracranial abnormality. Brain unchange d compared to old exam. Left frontal scalp hematoma appears smaller than old exam. Spondylotic changes in the cervical spine. Degenerative first-degree C7-T1 spondylolisthesis unchange d. No fracture seen.
== END 2020-05-17 07:58 | disposition home or self-care (01) ==
LOC: EC 05:40
DX: S00.83XA Contusion of other part of head, initial encounter (principal); M79.604 Pain in right leg; J44.9 Chronic obstructive pulmonary disease, unspecified; I10 Essential (primary) hypertension; E07.9 Disorder of thyroid, unspecified; N39.0 Urinary tract infection, site not specified; E78.5 Hyperlipidemia, unspecified; F41.9 Anxiety disorder, unspecified; F32.9 Major depressive disorder, single episode, unspecified; K21.9 Gastro-esophageal reflux disease without esophagitis; K44.9 Diaphragmatic hernia without obstruction or gangrene; F17.200 Nicotine dependence, unspecified, uncomplicated; Z79.890 Hormone replacement therapy; Z79.899 Other long term (current) drug therapy; Z88.8 Allergy status to other drugs, medicaments and biological substances; Z91.048 Other nonmedicinal substance allergy status; Z88.1 Allergy status to other antibiotic agents; Z88.5 Allergy status to narcotic agent; Z96.651 Presence of right artificial knee joint; W19.XXXA Unspecified fall, initial encounter
CPT/HCPCS: 70450; 71045; 72125; 99284